=== PATIENT | female | born 1960 | race Caucasian/White ===

== ENCOUNTER → 2016-10-07 | Outpatient (CLI) | payer BC ==
[~2016-10-07] MED LIST: AMT25 PO; ASPI81TA28 PO; B-COTAB18; CARI350T28 PO; CHOL200010 PO; DILT240C57 PO; GLUC10007 PO; IBUP-1050 PO; MAGN400T6 PO; MELA1TAB22 PO; MULT-513 PO; OMEG10007 PO; ONDA4TAB46 PO; TRAM-10 PO; ZNTT/150 PO; ZOLE5INJ INH
--- NOTE | 2016-10-07 15:33 | MAMMOGRAPHY REPORT ---
BILATERAL DIGITAL SCREENING MAMMOGRAM TOMOSYNTHESIS WITH CAD: 10/07/2016 TECHNIQUE: Breast tomosynthesis in addition to standard 2D mammography was performed. Current study was also evaluated with a Computer Aided Detection (CAD) system. COMPARISON: Comparison is made to exams dated: 06/14/2013 mammogram and 10/04/2014 mammogram - [facility]. BREAST COMPOSITION: There are scattered areas of fibroglandular density in both breasts. FINDINGS: No suspicious masses, calcifications, or areas of architectural distortion are noted in e ither breast. There has been no significant interval change compared to prior exams. IMPRESSION: ACR BI-RADS CATEGORY 1: NEGATIVE There is no mammographic evidence of malignancy. A 1 year screening mammogram is recommended. The p atient will receive written notification of the results. Approximately 10% of breast cancers are not detected with mammography. A negative mammographic repor t should not delay biopsy if a clinically suggestive mass is present. Lavern Stevens M.D. ah/:10/07/2016 13:39:15 Drag Seiner: Cheryl MCMAHON(R)(M), [facility] letter sent: Normal 1/2 BI-RADS Code: ACR BI-RADS Category 1: Negative
== END | disposition home or self-care (01) ==
LOC: C.MAMM 11:05
PROVIDERS: ATTEND Obstetrics & Gynecology
DX: Z12.31 Encounter for screening mammogram for malignant neoplasm of breast (principal)

== ENCOUNTER → 2016-10-09 | Day surgery (SDC) | payer BC ==
[2016-10-08 08:55] VITALS: BMI 20.4
[~2016-10-09] VITALS: Ht 170.2 cm; Wt 59.0 kg
[~2016-10-09] MED LIST changes: +ZOLEDRONIC ACID INJ 5 MG in EMPTY BAG 0 ML IV SCH
[2016-10-09 10:44] VITALS: BP 138/80; PULSE 60; TEMP 36.5; O2SAT 100; Ht 170.2 cm; Wt 59.0 kg
[2016-10-09 11:06] VITALS: BP 125/75; PULSE 61; TEMP 36.7; O2SAT 98
== END | disposition home or self-care (01) ==
LOC: C.MTU 10:27
PROVIDERS: ATTEND Internal Medicine
DX: M81.0 Age-related osteoporosis without current pathological fracture (principal); N95.0 Postmenopausal bleeding

== ENCOUNTER 2016-11-05 21:31 | Emergency (ER) | payer BC ==
[~2016-11-05] VITALS: Ht 170.2 cm; Wt 60.0 kg
[~2016-11-05 21:31] MED LIST changes: -ASPI81TA28 PO; -CARI350T28 PO; -MELA1TAB22 PO; -ONDA4TAB46 PO; -ZNTT/150 PO; -ZOLE5INJ INH; -ZOLEDRONIC ACID INJ 5 MG in EMPTY BAG 0 ML IV SCH
[2016-11-05 21:56] VITALS: TEMP 36.8; Ht 170.2 cm; Wt 60.0 kg
[2016-11-05] MEDS ORDERED: ONDANSETRON INJ 2 MG/ML 2 ML VIAL IV STA (22:24)
[2016-11-05 22:33] LABS: BASO % 0.1 %; BASO ABS # 0.01 K/uL (0-0.2); COMPLETE YES; EOS % 0.7 %; HEMATOCRIT 42.9 % (37-47); IG% 0.2 %; LYMPH % 10.8 %; LYMPH ABS # 1.05 K/uL (1.2-3.4); MEAN CELL VOLUME 95.1 fL (80-100); MEAN CORPUSCULAR HEMOGLOBIN 31.9 pg (25-34); MEAN CORPUSCULAR HGB CONC 33.6 g/dl (32-36); MEAN PLATELET VOLUME 10.7 fL (7.4-10.4); MONO % 6.6 %; NEUT % 81.6 %; PLATELET COUNT 255 K/uL (130-400); RED BLOOD COUNT 4.51 M/uL (4.2-5.4); WHITE BLOOD COUNT 9.68 K/uL (4.8-10.8)
[2016-11-05 22:40] LABS: BUN/CREATININE RATIO 24.1 (10-20); CALCIUM 9.3 mg/dl (8.5-10.1); CREATININE 0.86 mg/dl (0.60-1.20); POTASSIUM 3.8 mmol/L (3.5-5.1)
[2016-11-05] MEDS ORDERED: CARI350T28 PO (22:45)
[2016-11-05] MEDS ORDERED: SODIUM CHLORIDE 0.9% 1000ML 1,000 ML IV ONE ×2 (22:45)
[2016-11-05] MEDS ORDERED: ASPI81TA28 PO (22:58)
[2016-11-05] MEDS ORDERED: MELA1TAB22 PO (22:58)
[2016-11-05] MEDS ORDERED: ZNTT/150 PO (22:58)
[2016-11-05] MEDS ORDERED: ZOLE5INJ INH (22:58)
[2016-11-05] MEDS ORDERED: ONDA4TAB46 PO (22:58)
[2016-11-05 23:18] LABS: URINE APPEARANCE CLEAR (CLEAR); URINE BILIRUBIN NEG (NEG); URINE COLOR DK YELLOW; URINE NITRITE NEG (NEG); URINE PH >= 9.0 (4.5-7.5); URINE SPECIFIC GRAVITY 1.022 (1.000-1.030); UROBILINOGEN NEG (NEG); ZZUR CULT IF INDIC CLEAN CATCH NO
[2016-11-05 23:33] LABS: MANUAL MICROSCOPIC REQUIRED? NO; REVIEW REQ? NO; SULFASALICYLIC ACID NEG (NEG)
[2016-11-06] VITALS: BP 127/71; PULSE 85; O2SAT 100
--- NOTE | 2016-11-06 00:40 | EMERGENCY ROOM VISIT NOTE ---
History First contact with patient: 22:24 Chief Complaint: NAUSEA Stated Complaint: NAUSEA Nursing Triage Summary: Patient describes a sudden onset of nausea while at game at [facility]. Patient describes this as a sudden onset. Patient is currently taking ABX for UTI. Patient did have ETOH at dinner. History of Present Illness The patient is a 56 year old female who presents to the Emergency Room with complaints of acute onset of nausea and vomiting at the [facility] this evening. The patient states that she had scallops on a potato cake for lunch today, but no other abnormal food. She had yogurt around 4 PM. The patient and her got ready, went to the [employer] game, and after leaving the game the patient began feeling ill. She managed to make it outside of the [facility], where she vomited. She was initially seen by medics at the facility, who recommended ER evaluation. On arrival the patient has persistent nausea. She does report a history of gastroparesis. She has not had fever or chills. She is without significant abdominal pain. She rates her discomfort a 6/10. Review of Systems More than 10 systems were reviewed and otherwise negative with the exception of history of present illness. Past Medical/Surgical History History of gastroparesis. Status post cholecystectomy. Family History No pertinent family history Social History Smoking Status: Never Smoker Housing Status: lives with family Current/Historical Medications Scheduled Aspirin (Aspirin Ec), 81 MG PO DAILY B-Complex Vitamins (Vitamin B Complex), DAILY Cholecalciferol (Vitamin D), 2,000 UNITS PO DAILY Fish Oil ([place]-3), 1 CAP PO DAILY Magnesium Oxide (Mag-Ox), 400 MG PO DAILY Melatonin-Pyridoxine (Melatonin), 1 TAB PO HS Multivitamins/Minerals (Mvi With Minerals), 1 TAB PO DAILY Zoledronic Acid (Reclast), 1 DOSE INH UD Scheduled PRN Amitriptyline HCl (Amitriptyline HCl), 25 MG PO DAILYBB PRN for Carisoprodol (Soma), 0.5 TABS PO HS PRN for Muscle Spasms Ondansetron Hcl (Zofran), 4 MG PO Q8 PRN for Nausea Ranitidine (Zantac), 150 MG PO DAILY PRN for Dyspepsia Tramadol (Ultram), 1 TAB PO TID PRN for Pain Allergies Coded Allergies: Sulfa Antibiotics (Verified Allergy, Intermediate, HIVES, 10/09/16) reports generalized swelling Physical Exam Vital Signs Date Time Temp Pulse Resp B/P Pulse Ox O2 Delivery O2 Flow Rate FiO2 11/06/16 00:00 85 18 127/71 100 11/05/16 21:56 36.8 78 16 96/67 98 Room Air Pain Rating (0-10): 0 Physical Exam VITALS: Vitals are noted on the nurse's note and reviewed by myself. Vital signs stable. GENERAL: Well-developed, well-nourished, white female, who is in no acute distress and resting comfortably. Patient is cooperative with the examination. HEAD: Normocephalic atraumatic. MOUTH: Mucous membranes moist. Tonsils are not enlarged. Pharynx without erythema, blood, or exudate. Uvula midline. Airway patent. NECK: Supple without nuchal rigidity. No lymphadenopathy. No thyromegaly. Cervical spine is nontender. HEART: Regular rate and rhythm without murmurs gallops or rubs. LUNGS: Clear to auscultation bilaterally without wheezes, rales or rhonchi. No retractions or accessory muscle use. ABDOMEN: Positive normal bowel sounds x 4. Soft, nontender, without masses or organomegaly. No guarding or rebound tenderness. No CVA tenderness. MUSCULOSKELETAL: No muscle atrophy, erythema, or edema noted. Full range of motion without joint tenderness in extremities. No tenting of skin. Medical Decision & Procedures Laboratory Results 11/05/16 22:05 Red Blood Count 4.51, Mean Corpuscular Volume 95.1, Mean Corpuscular Hemoglobin 31.9, Mean Corpuscular Hemoglobin Concent 33.6, Mean Platelet Volume 10.7, Neutrophils (%) (Auto) 81.6, Lymphocytes (%) (Auto) 10.8, Monocytes (%) (Auto) 6.6, Eosinophils (%) (Auto) 0.7, Basophils (%) (Auto) 0.1, Neutrophils # (Auto) 7.89, Lymphocytes # (Auto) 1.05, Monocytes # (Auto) 0.64, Eosinophils # (Auto) 0.07, Basophils # (Auto) 0.01 11/05/16 22:05 Test 11/05/16 22:05 11/05/16 23:00 White Blood Count 9.68 K/uL (4.8-10.8) Red Blood Count 4.51 M/uL (4.2-5.4) Hemoglobin 14.4 g/dL (12.0-16.0) Hematocrit 42.9 % (37-47) Mean Corpuscular Volume 95.1 fL (80-100) Mean Corpuscular Hemoglobin 31.9 pg (25-34) Mean Corpuscular Hemoglobin Concent 33.6 g/dl (32-36) Platelet Count 255 K/uL (130-400) Mean Platelet Volume 10.7 fL (7.4-10.4) Neutrophils (%) (Auto) 81.6 % Lymphocytes (%) (Auto) 10.8 % Monocytes (%) (Auto) 6.6 % Eosinophils (%) (Auto) 0.7 % Basophils (%) (Auto) 0.1 % Neutrophils # (Auto) 7.89 K/uL (1.4-6.5) Lymphocytes # (Auto) 1.05 K/uL (1.2-3.4) Monocytes # (Auto) 0.64 K/uL (0.11-0.59) Eosinophils # (Auto) 0.07 K/uL (0-0.5) Basophils # (Auto) 0.01 K/uL (0-0.2) RDW Standard Deviation 43.8 fL (36.4-46.3) RDW Coefficient of Variation 12.7 % (11.5-14.5) Immature Granulocyte % (Auto) 0.2 % Immature Granulocyte # (Auto) 0.02 K/uL (0.00-0.02) Anion Gap 6.0 mmol/L (3-11) Est Creatinine Clear Calc Drug Dose 67.5 ml/min Estimated GFR () 86.3 Estimated GFR (Non- 74.5 BUN/Creatinine Ratio 24.1 (10-20) Calcium Level 9.3 mg/dl (8.5-10.1) Total Bilirubin 0.4 mg/dl (0.2-1) Aspartate Amino Transf (AST/SGOT) 27 U/L (15-37) Alanine Aminotransferase (ALT/SGPT) 23 U/L (12-78) Alkaline Phosphatase 74 U/L (45-117) Total Protein 7.9 gm/dl (6.4-8.2) Albumin 3.9 gm/dl (3.4-5.0) Globulin 4.0 gm/dl (2.5-4.0) Albumin/Globulin Ratio 1.0 (0.9-2) Lipase 225 U/L (73-393) Urine Color DK YELLOW Urine Appearance CLEAR (CLEAR) Urine pH >= 9.0 (4.5-7.5) Urine Specific [place] 1.022 (1.000-1.030) Urine Protein NEG (NEG) Urine Glucose (UA) NEG (NEG) Urine Ketones NEG (NEG) Urine Occult Blood NEG (NEG) Urine Nitrite NEG (NEG) Urine Bilirubin NEG (NEG) Urine Urobilinogen NEG (NEG) Urine Leukocyte Esterase TRACE (NEG) Urine WBC (Auto) 1-5 /hpf (0-5) Urine RBC (Auto) 0-4 /hpf (0-4) Urine Hyaline Casts (Auto) 1-5 /lpf (0-5) Urine Epithelial Cells (Auto) 10-20 /lpf (0-5) Urine Bacteria (Auto) NEG (NEG) Medications Administered Medications (Trade) Dose Ordered Sig/Crissy Route Start Time Stop Time Status Last Admin Dose Admin Ondansetron HCl 4 mg 4 mg NOW STAT IV 11/05/16 22:24 11/05/16 22:25 DC 11/05/16 22:35 4 MG Sodium Chloride 1,000 ml @ 999 mls/hr Q1H1M ONCE IV 11/05/16 22:45 11/05/16 23:45 DC 11/05/16 22:39 999 MLS/HR Sodium Chloride (Nss 1000ml) 1,000 ml @ 999 mls/hr Q1H1M ONCE IV 11/05/16 22:45 11/05/16 23:45 DC 11/05/16 23:00 999 MLS/HR ED Course Physical exam and history were performed. Nursing notes and EMR were reviewed. Patient appears to have nausea and vomiting times one episode this evening. Patient has a history of gastroparesis, but she typically does not have vomiting with this. IV access was established and labs were obtained. The patient was hydrated with 2 L normal saline. She was given IV Zofran for comfort. The patient blood work is as above and was reviewed. She does not have a significantly elevated white blood cell count, gross anemia, bandemia, or significant electrolyte imbalance. On reevaluation the patient had significant improvement of her nausea, and felt much better after IV hydration. I discussed options of care with the patient, who overall appears well for discharge home. She does have Zofran at home that she may use if needed. I suspect that her symptoms may be food borne or viral in etiology, and I did discuss this with her. She did not have any worsening abdominal discomfort, and certainly does not present like an acute surgical abdomen at this time. If she does have worsening evolving symptoms she was invited back to the ER. The patient should otherwise follow with her PCP and she was very pleased with plan of care. She was discharged home under the care of her . The chart was completed utilizing [employer] Speech Voice Recognition Software. Grammatical errors, random word insertions, pronoun errors, and incomplete sentences are an occasional consequence of this system due to software limitations, ambient noise, and hardware issues. Any formal questions or concerns about the content, text, or information contained within the body of this dictation should be directly addressed to the provider for clarification. . Medical Decision Differential diagnosis: Etiologies such as gastroenteritis, food borne illness, infections, appendicitis , diverticulitis, inflammatory bowel disease, obstruction, GI bleed, biliary pathology, as well as others were entertained. Impression Primary Impression: Nausea and vomiting Departure Information Dispostion Home / Self-Care Condition GOOD Forms HOME CARE DOCUMENTATION FORM, IMPORTANT VISIT INFORMATION Patient Instructions My [facility] Additional Instructions You were seen and evaluated today on an emergency basis only. This is not a substitute for, or an effort to provide, complete comprehensive medical care. It is not possible to recognize and treat all injuries or illnesses in a single emergency department visit. For this reason it is recommended that you followup with your primary care physician in the next week with any ongoing or persistent symptoms. Drink plenty of fluids and remain well hydrated. You may use your Zofran at home to help with her symptoms. You are welcome to return to the emergency department anytime with new, worsening, or concerning symptoms.
== END 2016-11-06 | disposition home or self-care (01) ==
LOC: C.EDB 21:32 → C.EDA 11-06
DX: R11.2 Nausea with vomiting, unspecified (principal); Z90.49 Acquired absence of other specified parts of digestive tract; Z79.82 Long term (current) use of aspirin

== ENCOUNTER → 2016-11-11 | Outpatient (CLI) | payer BC ==
[~2016-11-11] MED LIST changes: +ASPI81TA28 PO; +CARI350T28 PO; -DILT240C57 PO; -GLUC10007 PO; -IBUP-1050 PO; +MELA1TAB22 PO; +ONDA4TAB46 PO; +ZNTT/150 PO; +ZOLE5INJ INH
== END | disposition home or self-care (01) ==
LOC: C.LABSPEC 13:52
PROVIDERS: ATTEND Physician Assistant
DX: N94.9 Unspecified condition associated with female genital organs and menstrual cycle (principal)

== ENCOUNTER 2017-04-12 23:31 | Emergency (ER) | payer BC ==
[~2017-04-12] VITALS: Ht 167.6 cm; Wt 63.2 kg
[2017-04-12 23:39] VITALS: TEMP 36.5; Ht 167.6 cm; Wt 63.2 kg
[2017-04-13] MEDS ORDERED: NORCO 5/325MG HOME PACK PO ONE (00:45)
--- NOTE | 2017-04-13 00:45 | EMERGENCY ROOM VISIT NOTE ---
ED Visit Note First contact with patient: 00:15 CHIEF COMPLAINT: Nasal injury 2 hours ago HISTORY OF PRESENT ILLNESS: Patient is a 56-year-old white female who presents to the emergency department for evaluation nasal pain after an injury that occurred about 2 hours ago. She was not wearing her glasses and had turned the light off in her kitchen. When she turned, she accidentally ran into the wall, striking her nose. She states that she had bleeding immediately, has been states that it was primarily from the right nostril. They were able to get this stopped prior to leaving home. She has a small laceration on the nasal bridge. There was no loss of consciousness, vomiting, or change in behavior after the injury. The nose is swollen and there is constant moderate pain. The patient denies any change in vision and does not have a headache. REVIEW OF SYSTEMS: Review of systems as per HPI. All other systems reviewed were negative. At least 6 systems reviewed. PMH: Electronic medical records are reviewed and summarized as above/below. See Problem List. SOCIAL HISTORY: Patient lives at home with her . She is retired. PHYSICAL EXAM: Vital Signs: Reviewed Nurse's notes. CONSTITUTIONAL: Patient is a pleasant, well-appearing 56-year-old white female who is awake and alert and in no acute distress. EYES: PERRL, EOMs full, no discharge or injection. NOSE: The bridge of the nose is slightly ecchymotic and swollen and tender. She has a small, non-gaping roughly 2mm laceration over the nasal bridge. The nose is not displaced significantly to one side or the other. There is some dried blood in the nostrils but no active bleeding. There is no septal hematoma. EARS: Tympanic membranes intact, not inflamed, have normal contour. External canals clear. MOUTH: Mucous membranes moist, no lesions, tongue and gums appear normal. THROAT: No pharyngeal injection, exudates, or tonsillar hypertrophy. Airway is patent. NEUROLOGICAL: Sensory and motor functions grossly intact, normal gait, cooperative and appropriate. EMERGENCY DEPARTMENT COURSE: The patient was seen and evaluated as above. She has sustained a nasal injury, with a very small laceration. There is no significant deformity or displacement of the nose. The patient is agreeable to defer on radiographs. The wound was cleansed with saline, and Dermabond 2 layers was applied. She does not have any evidence for septal hematoma. Conservative care measures were discussed. She was encouraged to continue to ice the nose, can use [id number] medications for discomfort and was also given a [place] home pack to use if needed. She can follow-up with her primary care provider for referral to ENT if she would like the nose reevaluated once the swelling of the bruising resolved. Medication reconciliation: I attest that I have personally reviewed the patient' s current medication list. Blood pressure screening : Patient was found to have normal blood pressure on screening and does not require follow-up. Problem List Medical Problems: (1) Nausea and vomiting Status: Resolved (2) Stomach problems Status: Chronic Surgical Problems: (1) History of total hip arthroplasty Status: Resolved Current/Historical Medications Scheduled Aspirin (Aspirin Ec), 81 MG PO DAILY B-Complex Vitamins (Vitamin B Complex), DAILY Cholecalciferol (Vitamin D), 2,000 UNITS PO DAILY Fish Oil ([place]-3), 1 CAP PO DAILY Magnesium Oxide (Mag-Ox), 400 MG PO DAILY Melatonin-Pyridoxine (Melatonin), 1 TAB PO HS Multivitamins/Minerals (Mvi With Minerals), 1 TAB PO DAILY Zoledronic Acid (Reclast), 1 DOSE INH UD Scheduled PRN Amitriptyline HCl (Amitriptyline HCl), 25 MG PO DAILYBB PRN for Carisoprodol (Soma), 0.5 TABS PO HS PRN for Muscle Spasms Ondansetron Hcl (Zofran), 4 MG PO Q8 PRN for Nausea Ranitidine (Zantac), 150 MG PO DAILY PRN for Dyspepsia Tramadol (Ultram), 1 TAB PO TID PRN for Pain Allergies Coded Allergies: Sulfa Antibiotics (Verified Allergy, Intermediate, HIVES, 04/12/17) reports generalized swelling Vital Signs Date Time Temp Pulse Resp B/P (MAP) Pulse Ox O2 Delivery O2 Flow Rate FiO2 04/12/17 23:39 36.5 75 20 139/84 97 Room Air Departure Information Impression Primary Impression: Nasal injury Referrals Miguel Coulter M.D. (PCP) Patient Instructions My [facility] Additional Instructions Hydrocodone/Acetaminophen ([place]) 5/325 mg: Take 1-2 pills every four hours for breakthrough pain. Avoid alcohol, operating machinery or dangerous equipment, working on ladders or roofs, DRIVING, or situations where being under the influence may be dangerous. It is recommended to use an [id number]-bhj-wajzpxn stool softener such as Colace, 100mg twice daily while taking this medication to avoid constipation. Ibuprofen(Motrin, Advil) may be used for fever or pain. Use 600mg every six hours as needed. Take with food. Avoid using more than 2400mg in a 24 hour period. Do not use 2400mg per day for more than three consecutive days without physician direction. Prolonged inappropriate use can lead to stomach upset or ulcers. This medication can be taken if you need to drive, work, or perform activities which may be dangerous when taking narcotic pain medication. (AND/OR) Acetaminophen(Tylenol) may be used for fever or pain. Use 1000mg every six hours as needed. Avoid using more than 3000mg in a 24 hour period. This medication can be taken if you need to drive, work, or perform activities which may be dangerous when taking narcotic pain medication. Ice compresses for 10-15 minutes at a time four times daily for 2-3 days. Allow the Dermabond to come off on its own. Continue current medications. Follow-up with ENT provider for further care and management if you would like the nose reevaluated once swelling and bruising have resolved. Problem Qualifiers Primary Impression: Nasal injury Encounter type: initial encounter Qualified Codes: S09.92XA - Unspecified injury of nose, initial encounter
[2017-04-13 01:23] VITALS: BP 138/85; PULSE 65; O2SAT 97
== END 2017-04-13 01:24 | disposition home or self-care (01) ==
LOC: C.EDB 23:31
DX: S09.92XA Unspecified injury of nose, initial encounter (principal); W22.8XXA Striking against or struck by other objects, initial encounter; Z87.19 Personal history of other diseases of the digestive system; Z96.649 Presence of unspecified artificial hip joint; Z79.82 Long term (current) use of aspirin; Z79.899 Other long term (current) drug therapy; Z88.2 Allergy status to sulfonamides

== ENCOUNTER → 2017-08-12 | Outpatient (CLI) | payer BC ==
--- NOTE | 2017-08-12 11:11 | DIAGNOSTIC IMAGING REPORT ---
LUMBAR SPINE W/O CONTRAST HISTORY: Pain. Radiculopathy. CHRONIC LOW BACK PAIN, LUMBAR RADICULOPATHY TECHNIQUE: Multiplanar multisequence MRI of the lumbar spine was performed without the use of contrast. COMPARISON: 07/03/2015 FINDINGS: For the purpose of the report the L5-S1 disc space will be located on axial image 23 of 25. Mild degenerative disc desiccation throughout the entire lumbar region. This is similar based on the sagittal images. L1-L2: No significant central canal or neural foraminal narrowing. L2-L3: No significant central canal or neural foraminal narrowing. L3-L4: Moderate narrowing left neural foramina primarily secondary to either a synovial cyst versus dural ectasia. This is minimally increased in prominence of the prior study. Minimal associated broad-based disc bulge. L4-L5: Mild dural ectasia of the nerve roots bilaterally. Mild narrowing of the neuroforamina bilaterally similar compared to the prior study. Mild broad-based disc bulge similar compared to the prior study. L5-S1: No significant central canal or neural foraminal narrowing. IMPRESSION: 1. Mild broad-based disc bulges at L3-L4 and L4-L5 similar as compared to the prior study. 2. Mild dural ectasia and or synovial cyst narrowing the left and to a lesser extent right neural foramina at L3-L4 and bilaterally at L4-L5. 3. Narrowing of the neural foramina is similar to slightly increased from the prior exam. The above report was generated using voice recognition software. It may contain grammatical, syntax or spelling errors. Electronically signed by: Christopher Olson M.D. 08/12/2017 11:10 AM Dictated Date/Time: 08/12/2017 11:00 AM
== END | disposition home or self-care (01) ==
LOC: C.MRI 09:32
PROVIDERS: ATTEND Internal Medicine
DX: M54.16 Radiculopathy, lumbar region (principal)

== ENCOUNTER → 2017-08-19 | Outpatient (CLI) | payer OTHER ==
[~2017-08-19] MED LIST changes: +CYAN100T PO; +DICL1GEL12; +DIGE1CAP7 PO; +ESTVR2; +RANI150T85 PO; +TURM1CAP4 PO; -ZNTT/150 PO
--- NOTE | 2017-08-19 14:54 | DIAGNOSTIC IMAGING REPORT ---
THORACIC SPINE WITHOUT CLINICAL HISTORY: 57 years-old Female presenting with M54.9 Back painR20.0 [id number]. TECHNIQUE: Multisequence, multiplanar MR imaging of the thoracic spine was performed without the use of intravenous contrast. IV contrast: None. COMPARISON: 07/29/2015. FINDINGS: Localizer images: Unremarkable. Normal thoracic kyphosis. Vertebral bodies maintain normal height, alignment, and bone marrow signal intensity. Intervertebral disc spaces preserved. The mild disc osteophyte complex at T3-4 is again noted with left paracentral disc protrusion resulting in contouring of the left anterior aspect of the spinal cord. CSF space at this level is largely preserved. No significant neural foraminal narrowing. No significant other degenerative change is noted. These findings are similar to the prior exam. Partially visualized anterior cervical fusion hardware. IMPRESSION: Stable appearance of the focal degenerative change at T3-4 with left paracentral disc protrusion and contouring of the left anterior aspect of the spinal cord. No new degenerative change. Electronically signed by: Miguel Strauss M.D. 08/19/2017 2:53 PM Dictated Date/Time: 08/19/2017 2:49 PM
== END | disposition home or self-care (01) ==
LOC: C.MRIBC 13:58
PROVIDERS: ATTEND Family Medicine Adult Medicine
DX: M54.9 Dorsalgia, unspecified (principal); R20.0 Anesthesia of skin; M51.24 Other intervertebral disc displacement, thoracic region

== ENCOUNTER → 2017-09-28 | Outpatient (CLI) | payer OTHER ==
[~2017-09-28] MED LIST changes: -CARI350T28 PO; +GADAVIST IV PRN
--- NOTE | 2017-09-28 08:54 | DIAGNOSTIC IMAGING REPORT ---
CERVICAL SPINE MRI WITH AND WITHOUT CONTRAST HISTORY: M54.12 Cervical radiculopathy [id number] TECHNIQUE: Multiplanar multisequence MRI of the cervical spine was performed both before and after the use of intravenous contrast. COMPARISON STUDY: Cervical spine MRI 07/03/2015. FINDINGS: Alignment and curvature are intact. No fracture or subluxation. Prevertebral soft tissues and the C1-C2 interval are maintained. The cervical spinal cord is normal in course, caliber, and signal intensity. The visualized posterior fossa is unremarkable. There is anterior cervical discectomy and fusion at C6-C7. There is mild disc space narrowing at C4-C5. No abnormal enhancement. C2-C3: No significant central canal or neural foraminal narrowing. C3-C4: Small focal central disc protrusion without significant central canal or neural foraminal narrowing. C4-C5: Small broad-based posterior disc osteophyte complex without significant central canal narrowing. There is mild right-sided neural foraminal narrowing. This remains unchanged. C5-C6: Small broad-based posterior disc osteophyte complex with a focal left paracentral annular tear. No significant central canal narrowing. There is mild right-sided neural foraminal narrowing, unchanged. C6-C7: No significant central canal or neural foraminal narrowing. C7-T1: No significant central canal or neural foraminal narrowing. IMPRESSION: 1. Prior anterior cervical discectomy and fusion at C6-C7. 2. Mild degenerative changes at C3-C4, C4-C5, and C5-C6 as described above. This is not significantly changed. Electronically signed by: Justino Dudley M.D. 09/28/2017 8:53 AM Dictated Date/Time: 09/28/2017 8:46 AM
== END | disposition home or self-care (01) ==
LOC: C.MRI 06:27
PROVIDERS: ATTEND Psychiatry & Neurology Neurology
DX: M54.12 Radiculopathy, cervical region (principal)

== ENCOUNTER → 2017-09-30 | Day surgery (SDC) | payer OTHER ==
[~2017-09-30] VITALS: Ht 170.2 cm; Wt 62.6 kg
[~2017-09-30] MED LIST changes: +ACETAMINOPHEN 500 MG TAB PO PRN; -GADAVIST IV PRN; +ZOLEDRONIC ACID INJ 5 MG in EMPTY BAG 0 ML IV SCH
[2017-09-30 09:17] VITALS: BP 118/79; PULSE 68; TEMP 36.3; O2SAT 100; Ht 170.2 cm; Wt 62.6 kg
== END | disposition home or self-care (01) ==
LOC: C.MTU 09:04
PROVIDERS: ATTEND Internal Medicine
DX: M81.0 Age-related osteoporosis without current pathological fracture (principal)

== ENCOUNTER 2019-05-12 18:03 | Observation (INO) ==
[2019-05-12] MEDS ORDERED: FAMOTIDINE 20 MG TAB PO ONE (18:36)
[2019-05-12] MEDS ORDERED: predniSONE 20 MG TAB PO STA (18:36)
[2019-05-12 18:57] LABS: Basophils # (auto) 0.02 K/uL (0-0.2); Basophils % (auto) 0.3 %; Eosinophils # (auto) 0.07 K/uL (0-0.5); Hematocrit (blood only) 40.5 % (37-47); Hemoglobin 13.8 g/dL (12.0-16.0); Immature Granulocytes # (auto) 0.02 K/uL (0.00-0.02); Immature Granulocytes % (auto) 0.3 %; Lymphocytes # (auto) 1.94 K/uL (1.2-3.4); Lymphocytes % (auto) 27.7 %; Mean Corpuscular Hemoglobin 32.5 pg (25-34); Mean Corpuscular Hgb Conc 34.1 g/dL (32-36); Mean Corpuscular Volume 95.5 fL (80-100); Mean Platelet Volume 10.6 fL (7.4-10.4); Monocytes # (auto) 0.36 K/uL (0.11-0.59); Monocytes % (auto) 5.1 %; Neutrophils % (auto) 65.6 %; Platelet Count 245 K/uL (130-400); RDW Coefficient of Variation 12.2 % (11.5-14.5); RDW Standard Deviation 42.2 fL (36.4-46.3); Red Blood Count 4.24 M/uL (4.2-5.4); White Blood Count 7.01 K/uL (4.8-10.8)
--- NOTE | 2019-05-12 18:59 | XRay Report ---
SINGLE VIEW CHEST CLINICAL HISTORY: Atypical chest pain. FINDINGS: An AP, portable, upright chest radiograph is obtained. No prior studies are available for c omparison at the time of dictation. The cardiomediastinal silhouette is unremarkable. The lungs and pleural spaces are clear. No pneumothorax is seen. The bony thorax is grossly intact. Fusion hardwar e is noted in the lower cervical spine. Cholecystectomy clips are seen in the right upper quadrant. IMPRESSION: No active disease in the chest. Electronically signed by: Miller Islas M.D. 05/12/2019 6:58 PM
[2019-05-12 19:13] LABS: Alanine Aminotransferase 28 U/L (12-78); Albumin Level 3.7 gm/dl (3.4-5.0); Aspartate Aminotransferase 27 U/L (15-37); BUN Creatinine Ratio 11.7 (10-20); Blood Urea Nitrogen 12 mg/dl (7-18); Carbon Dioxide 26 mmol/L (21-32); Chloride 105 mmol/L (98-107); Creatinine Clr Calc Pharmacy 55.9 ml/min; Est GFR (African American) 67.6; Est GFR (Non-African American) 58.4; Glucose 173 mg/dl (70-99); Lipase 138 U/L (73-393); Potassium 3.5 mmol/L (3.5-5.1); Sodium 140 mmol/L (136-145)
[2019-05-12 19:18] LABS: Alkaline Phosphatase 74 U/L (45-117); Bilirubin,Total 0.3 mg/dl (0.2-1); Globulin 3.6 gm/dl (2.5-4.0); Total Protein 7.3 gm/dl (6.4-8.2); Troponin I < 0.015 ng/ml (0-0.045)
[2019-05-12] MEDS ORDERED: cefOXitin 2,000 MG/60 ML BAG IV STA (21:10)
[2019-05-12] MEDS ORDERED: cefTRIAXone SODIUM 1,000 MG/50 ML BAG IV STA (21:33)
[2019-05-12] MEDS ORDERED: ASPIRIN CHEW 324 MG PO STA (22:22)
[2019-05-12] MEDS ORDERED: NITROGLYCERIN 2% OINTMENT 30GM TUBE EXT STA (22:22)
--- NOTE | 2019-05-12 23:30 | Emergency Department Note ---
Entered by Ronna Carrington acting as a scribe for ED Provider Note CHIEF COMPLAINT: Chest pain HISTORY OF PRESENT ILLNESS: The patient is a 58 year old female who presents to the Emergency Room with complaints of chest pain that started 2.5 hours ago. The patient states that her pain is mostly in the right side of her chest but occasionally radiates to the center of her chest and back. The patient states that her chest pain started shortly after eating some chicken. The patient states that she has a loss of appetite and feels nauseas. The patient notes that she is currently on antibiotics for a UTI, but notes that she has started to break out in hives on her arms and legs. Pt denies LOC, headache, fevers, chills, diaphoresis, visual changes, neck pain, breathing difficulties, nausea, vomiting, abdominal pain, back pain, melena, hematochezia, urinary symptoms, numbness, weakness, lymphadenopathy, or other complaints. REVIEW OF SYSTEMS: See HPI for pertinent positives and negatives. A total of ten systems were reviewed and were otherwise negative. PMHx/PSHx: Osteoporosis, meningitis, acid reflux, hysterectomy. SOCIAL HISTORY: Patient lives at home. PHYSICAL EXAM: GENERAL: Awake, alert, uncomfortable-appearing, in no distress HENT: Normocephalic, atraumatic. Oropharynx unremarkable. EYES: PERRL. Normal conjunctiva. Sclera non-icteric. NECK: Inspection normal. Non-tender. Supple. No nuchal rigidity. FROM. No masses. RESPIRATORY: Clear to auscultation. No wheezes. No rales. Normal respiratory effort. CARDIAC: Normal rate. Normal rhythm. No murmurs. No rubs. Extremities warm and well perfused. Pulses equal. No JVD. GI: Soft, non-distended. No tenderness to palpation. No rebound or guarding. No masses. RECTAL: Deferred. MUSCULOSKELETAL: Atraumatic. Chest examination reveals no tenderness. The back is symmetrical on inspection without obvious abnormality. There is no CVA tenderness to palpation. No joint edema. LOWER EXTREMITIES: Calves are equal size bilaterally and non-tender. No edema. No discoloration. NEURO: Normal sensorium. No sensory or motor deficits noted. SKIN: Hives on arms and legs. No jaundice noted. EMERGENCY DEPARTMENT COURSE: 184: Past medical records reviewed. The patient was evaluated in room B3, and a complete history and physical examination were performed. 2056: I reevaluated the patient and she feels much better. The hives and redness are gone. We still need a repeat troponin. 2225: I discussed the patient's case with Dr. Wing- [facility], Hospitalist. She will evaluate the patient for further management. MEDICAL DECISION MAKING: Prior records/ancillary studies reviewed. Triage Nursing notes reviewed and agree them. Additional history obtained from the family. The patient's history was concerning for chest pain. Differential diagnosis: Etiologies such as cardiac ischemia, aortic dissection, pulmonary embolism, pne umonia, pneumothorax, musculoskeletal, infections, pericarditis, myocarditis, esophageal rupture, gastrointestinal, allergic reaction, as well as others were entertained. Physical examination: As above. Scattered hives and rash noted. ER treatment provided: Oral prednisone Oral Pepcid IV Rocephin On reassessment the patient felt better. Oral aspirin Nitropaste Diagnostic interpretation by me: The electrocardiogram was negative for pathologic change on the first. Repeat ECG revealed T wave inversions anteriorly. The labs revealed an unremarkable CBC and chemistry panel except for hyper glycemia. Troponin negative x1. Repeat troponin negative. Chemistry panel and LFTs negative A d-dimer was performed and it was negative. Based on Wells criteria and a negative dimer no further imaging for PE was performed. Imaging studies: Chest x-ray performed and was negative. Clinically patient is doing well. Her rash resolved after the above treatment. Unfortunately she was also complaining of chest pain and did have some acute ECG changes. Consultation: A consultation was placed with the hospitalist. The case was discussed and diagnostics were reviewed. The patient was evaluated in the ER for further treatment. IMPRESSION: Chest pain Acute electric cardiogram changes Acute UTI Allergic reaction caused by drug PLAN: Evaluated by Hospitalist The scribe's documentation has been prepared under my direction and personally reviewed by me in its entirety. I confirm that the note above accurately reflects all work, treatment, procedures, and medical decision making performed by me. Impression & Plan Chest pain, Acute UTI (urinary tract infection), Acute electrocardiogram changes, Allergic reaction caused by a drug Past Med/Surg History Medical History Acid reflux (Acute) Gastroparesis (Acute) History of hysterectomy (Acute) History of meningitis (Acute) Osteoporosis (Acute) Surgical History History of cholecystectomy (Acute) History of fusion of cervical spine (Acute) History of hip replacement (Acute) Social History Feels Safe at Home: Yes Smoking Status: Never smoker Results & Data Vital Signs Vital Signs - 24 hr 05/12/19 18:06 05/12/19 18:27 05/12/19 18:40 Temperature 36.9 C Temperature Source Oral Sepsis Recent Fever Within 48 Hours No Sepsis New/Unexplained Change in Mental Status No Sepsis Action Taken by Nursing No Action Required Pulse Rate 120 H 87 Pulse Rate [Left Apical] Pulse Rate from SpO2 Sensor 88 Pulse Rhythm [Left Apical] Pulse Strength [Left Apical] Respiratory Rate 18 20 Respiratory Effort / Characteristics Respiratory Depth Respiratory Pattern Blood Pressure 118/67 Blood Pressure [Left Arm] Blood Pressure Mean 84 Blood Pressure Mean [Left Arm] Blood Pressure Position [Left Arm] Pulse Oximetry 95 96 Oxygen Delivery Method Room Air 05/12/19 19:00 05/12/19 19:09 05/12/19 19:30 Temperature Temperature Source Sepsis Recent Fever Within 48 Hours Sepsis New/Unexplained Change in Mental Status Sepsis Action Taken by Nursing Pulse Rate 81 78 72 Pulse Rate [Left Apical] Pulse Rate from SpO2 Sensor 81 78 72 Pulse Rhythm [Left Apical] Pulse Strength [Left Apical] Respiratory Rate 19 21 18 Respiratory Effort / Characteristics Respiratory Depth Respiratory Pattern Blood Pressure 174/89 H 126/87 Blood Pressure [Left Arm] Blood Pressure Mean 117 100 Blood Pressure Mean [Left Arm] Blood Pressure Position [Left Arm] Pulse Oximetry 95 96 95 Oxygen Delivery Method 05/12/19 20:00 05/12/19 22:00 Temperature Temperature Source Sepsis Recent Fever Within 48 Hours Sepsis New/Unexplained Change in Mental Status Sepsis Action Taken by Nursing Pulse Rate 71 Pulse Rate [Left Apical] 85 Pulse Rate from SpO2 Sensor 73 Pulse Rhythm [Left Apical] Regular Pulse Strength [Left Apical] Normal Respiratory Rate 21 17 Respiratory Effort / Characteristics Non-Labored Spontaneous Respiratory Depth Normal Respiratory Pattern Regular Blood Pressure 124/87 Blood Pressure [Left Arm] 158/108 H Blood Pressure Mean 99 Blood Pressure Mean [Left Arm] 124 Blood Pressure Position [Left Arm] Sitting Pulse Oximetry 96 97 Oxygen Delivery Method Room Air Home Medications Current Medication List: was personally reviewed by me Laboratory Data Attestation: I reviewed the patient's lab results. Result diagrams: 05/12/19 18:35 05/12/19 18:35 Lab Results 05/12/19 05/12/19 05/12/19 Range/Units 18:35 18:35 18:54 WBC 7.01 (4.8-10.8) K/uL RBC 4.24 (4.2-5.4) M/uL Hgb 13.8 (12.0-16.0) g/dL Hct 40.5 (37-47) % MCV 95.5 (80-100) fL MCH 32.5 (25-34) pg MCHC 34.1 (32-36) g/dL RDW Std Deviation 42.2 (36.4-46.3) fL RDW Coeff of Josue 12.2 (11.5-14.5) % Plt Count 245 (130-400) K/uL MPV 10.6 H (7.4-10.4) fL Immature Gran % (Auto) 0.3 % Neut % (Auto) 65.6 % Lymph % (Auto) 27.7 % [place] % (Auto) 5.1 % Eos % (Auto) 1.0 % Baso % (Auto) 0.3 % Immature Gran # (Auto) 0.02 (0.00-0.02) K/uL Neut # (Auto) 4.60 (1.4-6.5) K/uL Lymph # (Auto) 1.94 (1.2-3.4) K/uL [place] # (Auto) 0.36 (0.11-0.59) K/uL Eos # (Auto) 0.07 (0-0.5) K/uL Baso # (Auto) 0.02 (0-0.2) K/uL POC D-Dimer 213 (0-450) ng/mlFEU Sodium 140 (136-145) mmol/L Potassium 3.5 (3.5-5.1) mmol/L Chloride 105 (98-107) mmol/L Carbon Dioxide 26 (21-32) mmol/L Anion Gap 9.0 (3-11) BUN 12 (7-18) mg/dl Creatinine 1.04 (0.6-1.2) mg/dl Est Cr Clr Drug Dosing 55.9 ml/min Est GFR ( Amer) 67.6 Est GFR (Non-Af Amer) 58.4 BUN/Creatinine Ratio 11.7 (10-20) Glucose 173 H (70-99) mg/dl Calcium 9.0 (8.5-10.1) mg/dl Total Bilirubin 0.3 (0.2-1) mg/dl AST 27 (15-37) U/L ALT 28 (12-78) U/L Alkaline Phosphatase 74 (45-117) U/L Troponin I < 0.015 (0-0.045) ng/ml Total Protein 7.3 (6.4-8.2) gm/dl Albumin 3.7 (3.4-5.0) gm/dl Globulin 3.6 (2.5-4.0) gm/dl Albumin/Globulin Ratio 1.0 (0.9-2) Lipase 138 (73-393) U/L 05/12/19 Range/Units 21:30 WBC (4.8-10.8) K/uL RBC (4.2-5.4) M/uL Hgb (12.0-16.0) g/dL Hct (37-47) % MCV (80-100) fL MCH (25-34) pg MCHC (32-36) g/dL RDW Std Deviation (36.4-46.3) fL RDW Coeff of Josue (11.5-14.5) % Plt Count (130-400) K/uL MPV (7.4-10.4) fL Immature Gran % (Auto) % Neut % (Auto) % Lymph % (Auto) % [place] % (Auto) % Eos % (Auto) % Baso % (Auto) % Immature Gran # (Auto) (0.00-0.02) K/uL Neut # (Auto) (1.4-6.5) K/uL Lymph # (Auto) (1.2-3.4) K/uL [place] # (Auto) (0.11-0.59) K/uL Eos # (Auto) (0-0.5) K/uL Baso # (Auto) (0-0.2) K/uL POC D-Dimer (0-450) ng/mlFEU Sodium (136-145) mmol/L Potassium (3.5-5.1) mmol/L Chloride (98-107) mmol/L Carbon Dioxide (21-32) mmol/L Anion Gap (3-11) BUN (7-18) mg/dl Creatinine (0.6-1.2) mg/dl Est Cr Clr Drug Dosing ml/min Est GFR ( Amer) Est GFR (Non-Af Amer) BUN/Creatinine Ratio (10-20) Glucose (70-99) mg/dl Calcium (8.5-10.1) mg/dl Total Bilirubin (0.2-1) mg/dl AST (15-37) U/L ALT (12-78) U/L Alkaline Phosphatase (45-117) U/L Troponin I < 0.015 (0-0.045) ng/ml Total Protein (6.4-8.2) gm/dl Albumin (3.4-5.0) gm/dl Globulin (2.5-4.0) gm/dl Albumin/Globulin Ratio (0.9-2) Lipase (73-393) U/L Administered Medications Discontinued Medications Aspirin (Aspirin) 324 mg PO NOW STA Stop: 05/12/19 22:23 Last Admin: 05/12/19 22:36 Dose: 324 mg Documented by: [id number] Famotidine (Pepcid) 20 mg PO NOW ONE Stop: 05/12/19 18:37 Last Admin: 05/12/19 19:11 Dose: 20 mg Documented by: [id number] Cefoxitin Sodium (Mefoxin) 2,000 mg in 60 mls @ 100 mls/hr IV NOW STA Stop: 05/12/19 21:45 Last Admin: 05/12/19 21:42 Dose: Not Given Documented by: [id number] Ceftriaxone Sodium (Rocephin) 1,000 mg in 50 mls @ 100 mls/hr IV NOW STA Stop: 05/12/19 22:02 Last Infusion: 05/12/19 22:15 Dose: 0 mls/hr Documented by: [id number] Admin: 05/12/19 21:41 Dose: 100 mls/hr Documented by: [id number] Nitroglycerin (Nitro-Bid 2%) 0.5 inch EXT NOW STA Stop: 05/12/19 22:23 Last Admin: 05/12/19 22:36 Dose: 0.5 inch Documented by: [id number] Prednisone (Prednisone) 60 mg PO NOW STA Stop: 05/12/19 18:37 Last Admin: 05/12/19 19:10 Dose: 60 mg Documented by: [id number] Imaging Data Radiologist's Impression: Radiology results as stated below per my review and the radiologist's interpretation: SINGLE VIEW CHEST CLINICAL HISTORY: Atypical chest pain. FINDINGS: An AP, portable, upright chest radiograph is obtained. No prior studies are available for comparison at the time of dictation. The cardiomediastinal silhouette is unremarkable. The lungs and pleural spaces are clear. No pneumothorax is seen. The bony thorax is grossly intact. Fusion hardware is noted in the lower cervical spine. Cholecystectomy clips are seen in the right upper quadrant. IMPRESSION: No active disease in the chest. Electronically signed by: Miller Islas M.D. 05/12/2019 6:58 PM ECG Data Attestation: I personally reviewed and interpreted this ECG as follows: Indication: chest pain Rate (beats per minute): 92 Rhythm: normal sinus Findings: + other (normal QRS), + nonspecific-ST abn and + ST depression; no ST elevation Additional Comments: REPEAT EKG: Rate: 74 Rhythm: Normal sinus rhythm Findings: Nonspecific ST-abnormality, anterior TWI, no ST depression, no PVC. Blood Pressure Blood Pressure Findings: Normal blood pressure Blood Pressure Disposition: did not require urgent referral Discharge Plan Visit Data Chief Complaint: Chest Pain Stated Complaint: chest pain ED Provider: Jose Arreola Discharge Problem: Chest pain, Acute UTI (urinary tract infection), Acute electrocardiogram changes, Allergic reaction caused by a drug Patient Disposition: Being Evaluated by Hospitalist Forms Stand Alone Forms: Call Back Authorization, My [facility] Prescriptions Prescriptions: No Action nitrofurantoin monohyd/m-cryst [Macrobid] 100 mg capsule 100 mg PO BID 5 Days Qty: 10 RF: 0 amitriptyline 10 mg tablet 20 mg PO QPM PRN (Reason: Insomnia) RF: 0 melatonin 10 mg Tablet 10 mg PO HS RF: 0 tramadol 50 mg Tablet 50 mg PO TID PRN (Reason: Pain) RF: 0 Referrals Referrals: Miguel Coulter MD [Primary Care Provider] - The scribe's documentation has been prepared under my direction and personally reviewed by me in its entirety. I confirm that the note above accurately reflect s all work, treatment, procedures, and medical decision making performed by me.
--- NOTE | 2019-05-12 23:36 | History & Physical Report ---
Date of Service May 12, 2019 Assessment & Plan (1) Chest pain: 58-year-old female with a past medical history of unspecified autoimmune neurologic condition with comorbid gastroparesis and neuropathic pain presents with presumed allergic reaction to Macrobid that she took this afternoon. She was experiencing right-sided chest pain and was found to have new T wave inversions in the anterior leads. Patient was admitted for observation of allergic symptoms and chest pain. Chest pain with new T wave inversions in anterior leads Continue to trend troponins, negative x1 Was given aspirin in the ED, continue tomorrow EKG in the morning Besides CAD equivalent mother, no significant cardiovascular risk factors Allergic reaction Given prednisone 60 mg in the ED Benadryl 25 mg as needed every 4 hours Pepcid push x1 given UTI Sulfa allergy, presumed allergy to Macrobid Treat with Augmentin twice daily Neuropathic symptoms Continue amitriptyline DVT prophylaxisSCDs/ambulate CODE STATUSfull Eric.p.o. except for meds and ice chips (2) Allergic reaction: (3) Gastroparesis: (4) Gastroesophageal reflux: History of Present Illness Primary Care Provider: Miguel Coulter MD 58-year-old female with a past medical history of unspecified autoimmune neurologic condition, gastroparesis presents with chest pain, tightness with swallowing and warmth/redness in her hands following administering a new medication. Today she was diagnosed with a UTI and was prescribed Macrobid. She denies any shortness of breath, diarrhea. She states that the symptoms began shortly after 3:30 PM today after she took her first dose. She states that the chest pain was a burning/pressure on her right chest wall. Patient is still having chest pain in the ED, but she states that the intensity is less. Patient denies a past medical history of CAD, diabetes, hypertension, HLD. Patient describes a family history of carotid stenosis in her mother and hypertension in her father. She denies being a smoker. She describes being very active with hiking and biking. She describes a diagnosis of a unspecified autoimmune condition approximately 20 years ago following what appeared to be an episode of meningitis. At that time she was admitted for strokelike symptoms including aphasia. She states that she occasionally has neuropathic symptoms in her extremities. Allergies Allergy/AdvReac Type Severity Reaction Status Date / Time Sulfa (Sulfonamide Allergy Intermediate HIVES Verified 05/12/19 20:10 Antibiotics) Home Medications Home Medications Medication Instructions Recorded Confirmed Type amitriptyline 20 mg PO QPM PRN 05/12/19 05/12/19 History melatonin 10 mg PO HS 05/12/19 05/12/19 History nitrofurantoin 100 mg PO BID 5 Days #10 cap 05/12/19 05/12/19 Rx monohydrate/macrocrystals 100 mg capsule tramadol 50 mg PO TID PRN 05/12/19 05/12/19 History Past Med/Surg History Medical History Acid reflux (Acute) Gastroparesis (Acute) History of hysterectomy (Acute) History of meningitis (Acute) Osteoporosis (Acute) Surgical History History of cholecystectomy (Acute) History of fusion of cervical spine (Acute) History of hip replacement (Acute) Social History Beliefs That Will Affect Care: None Current Living Situation: Spouse Other Information That Helps Us Care for You: No Feels Safe at Home: Yes Safety Concerns: Feels Safe At This Time Smoking Status: Never smoker Hx Substance Use: No Review of Systems Review of Systems: All systems reviewed & are unremarkable except as noted in HPI & below Physical Exam Constitutional: WD/WN, vitals as above Eyes: PERRL, conjunctivae normal, anicteric sclerae ENMT: external ear and nose normal, oropharynx normal Neck: trachea midline, no thyromegaly Respiratory: normal respiratory effort, lungs clear to auscultation Cardiovascular: RRR, no murmur, no edema Gastrointestinal (Abdomen): normal bowel sounds, soft, nontender, no hepatosplenomegaly Musculoskeletal: no cyanosis or clubbing, extremities motor strength 5/5 Skin: no rashes, warm and dry Neurologic: PERRL, EOMI, accommodation nl, no face palsy, no dysarthria Psychiatric: A+Ox3, euthymic affect Results & Data Vital Signs (Past 12 Hours) Vital Signs Temp Pulse Pulse Resp BP BP Pulse Ox 05/12/19 22:00 85 17 158/108 H 97 05/12/19 20:00 71 21 124/87 96 05/12/19 19:30 72 18 126/87 95 05/12/19 19:09 78 21 174/89 H 96 05/12/19 19:00 81 19 95 05/12/19 18:40 87 20 96 05/12/19 18:06 36.9 C 120 H 18 118/67 95 Code Status & VTE Plan VTE Prophylaxis Plan VTE Prophylaxis will be ordered: Yes Supervising Physician Co-Signing Physician Notes Patient seen and examined, chart reviewed, case discussed with Dr. Baires and I agree with his assessment and plan as documented above. Briefly, patient is a 58yo C female presenting with possible allergic reaction and right sided chest discomfort. On exam she is afebrile, HD stable, NAD Skin - intact, no rash HEENT - NC/AT, PERRL, EOMI, MMM, neck supple Heart - +S1/S2, regular, no m/r/g, no chest wall pain Lungs - CTA Abd - +BS, soft, mildly tender in epigastric area Ext - No edema Labs and images reviewed. Troponin x 1 negative. EKG with new TWI present in anterior leads, V1-V3 Assessment/Plan: -Observation with telemetry -Trend cardiac enzymes -Benadryl PRN for possible allergic reaction. Patient with no airway complaints, no stridor/wheeze -Augmentin BID for UTI -Remainder of plan as above PG Care Time/CCT Total # of Minutes Spent Total Time Spent with Patient: Total time spent is greater than 50% in coordination of care (as documented) at patient's floor/unit and/or counseling patient: Resident Activity Tracking Resident Involvement: Resident Care Provided Care Provided: Adult Hospital Medicine
[2019-05-13] MEDS ORDERED: AMITRIPTYLINE HCL 10 MG TAB PO PRN
[2019-05-13] MEDS ORDERED: ACETAMINOPHEN 325 MG TAB PO PRN
[2019-05-13] MEDS ORDERED: FAMOTIDINE 20 MG in SYRINGE 3 ML IV ONE (00:45)
[2019-05-13] MEDS ORDERED: DiphenhydrAMINE HCL 50 MG/ML VIAL IV STA (01:25)
[2019-05-13 04:11] LABS: Hematocrit (blood only) 39.6 % (37-47); Hemoglobin 13.2 g/dL (12.0-16.0); Immature Granulocytes # (auto) 0.01 K/uL (0.00-0.02); Immature Granulocytes % (auto) 0.1 %; Lymphocytes # (auto) 0.63 K/uL (1.2-3.4); Lymphocytes % (auto) 9.4 %; Mean Corpuscular Hemoglobin 31.6 pg (25-34); Mean Corpuscular Hgb Conc 33.3 g/dL (32-36); Mean Corpuscular Volume 94.7 fL (80-100); Mean Platelet Volume 10.4 fL (7.4-10.4); Monocytes # (auto) 0.05 K/uL (0.11-0.59); Monocytes % (auto) 0.7 %; Neutrophils # (auto) 6.03 K/uL (1.4-6.5); Neutrophils % (auto) 89.8 %; Platelet Count 229 K/uL (130-400); RDW Coefficient of Variation 12.3 % (11.5-14.5); RDW Standard Deviation 41.8 fL (36.4-46.3); Red Blood Count 4.18 M/uL (4.2-5.4); White Blood Count 6.72 K/uL (4.8-10.8)
[2019-05-13 04:35] LABS: Blood Urea Nitrogen 13 mg/dl (7-18); Calcium 8.5 mg/dl (8.5-10.1); Carbon Dioxide 26 mmol/L (21-32); Chloride 107 mmol/L (98-107); Creatinine Clr Calc Pharmacy 70.9 ml/min; Est GFR (African American) 90.1; Est GFR (Non-African American) 77.8; Glucose 155 mg/dl (70-99); Potassium 3.8 mmol/L (3.5-5.1); Sodium 139 mmol/L (136-145)
[2019-05-13 04:40] LABS: Troponin I < 0.015 ng/ml (0-0.045)
--- NOTE | 2019-05-13 07:04 | Family Medicine Progress Note ---
Date of Service May 13, 2019 Assessment & Plan (1) Chest pain: 58 y/o F w/ presumed allergic reaction to Macrobid that she took afternoon of 05/12; was experiencing right-sided chest pain and found to have new T wave inversions in the anterior leads. Chest pain with new T wave inversions in anterior leads Continue to trend troponins, negative x1 Continue aspirin EKG: Besides CAD equivalent mother, no significant cardiovascular risk factors Allergic reaction Given prednisone 60 mg in the ED Continue diphenhydramine 25 mg PRN Q4hr Pepcid push x1 given UTI Sulfa allergy, presumed allergy to Macrobid Continue Augmentin BID Neuropathic symptoms Continue home amitriptyline Dietn.p.o. except for meds and ice chips DVT prophylaxisSCDs/ambulate CODE STATUSfull (2) Allergic reaction: (3) Gastroparesis: (4) Gastroesophageal reflux: Physical Exam Eyes: PERRL, conjunctivae normal, anicteric sclerae EOM intact bilaterally ENMT: external ear and nose normal, oropharynx normal Respiratory: normal respiratory effort, lungs clear to auscultation Cardiovascular: RRR, no murmur, no edema Extremities: no calf tenderness and no edema Gastrointestinal (Abdomen): normal bowel sounds, soft, nontender, no hepatosplenomegaly Results & Data Vital Signs (Past 12 Hours) Vital Signs Temp Pulse Pulse Resp BP BP Pulse Ox 05/13/19 04:15 36.5 C 76 16 107/68 95 05/13/19 01:33 83 05/13/19 00:10 36.5 C 81 20 134/84 94 05/12/19 23:59 76 18 143/82 H 94 05/12/19 22:00 85 17 158/108 H 97 05/12/19 20:00 71 21 124/87 96 05/12/19 19:30 72 18 126/87 95 05/12/19 19:09 78 21 174/89 H 96 05/12/19 19:00 81 19 95 Laboratory Results 05/13/19 05/13/19 05/12/19 Range/Units 03:47 03:47 21:30 WBC 6.72 (4.8-10.8) K/uL RBC 4.18 L (4.2-5.4) M/uL Hgb 13.2 (12.0-16.0) g/dL Hct 39.6 (37-47) % MCV 94.7 (80-100) fL MCH 31.6 (25-34) pg MCHC 33.3 (32-36) g/dL RDW Std Deviation 41.8 (36.4-46.3) fL RDW Coeff of Josue 12.3 (11.5-14.5) % Plt Count 229 (130-400) K/uL MPV 10.4 (7.4-10.4) fL Immature Gran % (Auto) 0.1 % Neut % (Auto) 89.8 % Lymph % (Auto) 9.4 % [place] % (Auto) 0.7 % Eos % (Auto) 0.0 % Baso % (Auto) 0.0 % Immature Gran # (Auto) 0.01 (0.00-0.02) K/uL Neut # (Auto) 6.03 (1.4-6.5) K/uL Lymph # (Auto) 0.63 L (1.2-3.4) K/uL [place] # (Auto) 0.05 L (0.11-0.59) K/uL Eos # (Auto) 0.00 (0-0.5) K/uL Baso # (Auto) 0.00 (0-0.2) K/uL POC D-Dimer (0-450) ng/mlFEU Sodium 139 (136-145) mmol/L Potassium 3.8 (3.5-5.1) mmol/L Chloride 107 (98-107) mmol/L Carbon Dioxide 26 (21-32) mmol/L Anion Gap 6.0 (3-11) BUN 13 (7-18) mg/dl Creatinine 0.82 (0.6-1.2) mg/dl Est Cr Clr Drug Dosing 70.9 ml/min Est GFR ( Amer) 90.1 Est GFR (Non-Af Amer) 77.8 BUN/Creatinine Ratio 16.0 (10-20) Glucose 155 H (70-99) mg/dl Calcium 8.5 (8.5-10.1) mg/dl Magnesium 2.0 (1.8-2.4) mg/dl Total Bilirubin (0.2-1) mg/dl AST (15-37) U/L ALT (12-78) U/L Alkaline Phosphatase (45-117) U/L Troponin I < 0.015 < 0.015 (0-0.045) ng/ml Total Protein (6.4-8.2) gm/dl Albumin (3.4-5.0) gm/dl Globulin (2.5-4.0) gm/dl Albumin/Globulin Ratio (0.9-2) Lipase (73-393) U/L 05/12/19 05/12/19 05/12/19 Range/Units 18:54 18:35 18:35 WBC 7.01 (4.8-10.8) K/uL RBC 4.24 (4.2-5.4) M/uL Hgb 13.8 (12.0-16.0) g/dL Hct 40.5 (37-47) % MCV 95.5 (80-100) fL MCH 32.5 (25-34) pg MCHC 34.1 (32-36) g/dL RDW Std Deviation 42.2 (36.4-46.3) fL RDW Coeff of Josue 12.2 (11.5-14.5) % Plt Count 245 (130-400) K/uL MPV 10.6 H (7.4-10.4) fL Immature Gran % (Auto) 0.3 % Neut % (Auto) 65.6 % Lymph % (Auto) 27.7 % [place] % (Auto) 5.1 % Eos % (Auto) 1.0 % Baso % (Auto) 0.3 % Immature Gran # (Auto) 0.02 (0.00-0.02) K/uL Neut # (Auto) 4.60 (1.4-6.5) K/uL Lymph # (Auto) 1.94 (1.2-3.4) K/uL [place] # (Auto) 0.36 (0.11-0.59) K/uL Eos # (Auto) 0.07 (0-0.5) K/uL Baso # (Auto) 0.02 (0-0.2) K/uL POC D-Dimer 213 (0-450) ng/mlFEU Sodium 140 (136-145) mmol/L Potassium 3.5 (3.5-5.1) mmol/L Chloride 105 (98-107) mmol/L Carbon Dioxide 26 (21-32) mmol/L Anion Gap 9.0 (3-11) BUN 12 (7-18) mg/dl Creatinine 1.04 (0.6-1.2) mg/dl Est Cr Clr Drug Dosing 55.9 ml/min Est GFR ( Amer) 67.6 Est GFR (Non-Af Amer) 58.4 BUN/Creatinine Ratio 11.7 (10-20) Glucose 173 H (70-99) mg/dl Calcium 9.0 (8.5-10.1) mg/dl Magnesium (1.8-2.4) mg/dl Total Bilirubin 0.3 (0.2-1) mg/dl AST 27 (15-37) U/L ALT 28 (12-78) U/L Alkaline Phosphatase 74 (45-117) U/L Troponin I < 0.015 (0-0.045) ng/ml Total Protein 7.3 (6.4-8.2) gm/dl Albumin 3.7 (3.4-5.0) gm/dl Globulin 3.6 (2.5-4.0) gm/dl Albumin/Globulin Ratio 1.0 (0.9-2) Lipase 138 (73-393) U/L Medications Administered Current Inpatient Medications Acetaminophen (Tylenol) 650 mg PO Q4H PRN PRN Reason: Pain or Fever Stop: 06/12/19 00:00 Amitriptyline HCl (Elavil) 20 mg PO QPM PRN PRN Reason: Insomnia Stop: 06/12/19 00:00 Amoxicillin/Clavulanate Potassium (Augmentin 875mg) 1 tab PO BIDM [facility] Stop: 05/18/19 07:59 Aspirin (Ecotrin Ectab) 81 mg PO QAM [facility] Stop: 06/12/19 08:59 Diphenhydramine HCl (Benadryl Capsule) 25 mg PO Q4H PRN PRN Reason: Allergic Reaction Stop: 06/12/19 00:00 PG Care Time/CCT Total # of Minutes Spent Total Time Spent with Patient: Total time spent is greater than 50% in coordination of care (as documented) at patient's floor/unit and/or counseling patient: Resident Activity Tracking Resident Involvement: Resident Care Provided Care Provided: Adult Hospital Medicine
[2019-05-13] MEDS ORDERED: PHENAZOPYRIDINE HCL 100 MG TAB PO PRN (07:34)
[2019-05-13] MEDS ORDERED: AMOXICILLIN/CLAVULANATE 875 MG TAB PO SCH (08:00)
[2019-05-13] MEDS ORDERED: ASPIRIN 81 MG ECTAB PO SCH (09:00)
[2019-05-13] MEDS ORDERED: IBUPROFEN 800 MG TAB PO ONE (13:15)
[2019-05-13] MEDS ORDERED: cephALEXin 500 MG CAP PO SCH (13:51)
--- NOTE | 2019-05-13 18:11 | Discharge Summary ---
Date of Service May 13, 2019 Admission HPI Per Admitting Provider 58-year-old female with a past medical history of unspecified autoimmune neurologic condition, gastroparesis presents with chest pain, tightness with swallowing and warmth/redness in her hands following administering a new medication. Today she was diagnosed with a UTI and was prescribed Macrobid. She denies any shortness of breath, diarrhea. She states that the symptoms began shortly after 3:30 PM today after she took her first dose. She states that the chest pain was a burning/pressure on her right chest wall. Patient is still having chest pain in the ED, but she states that the intensity is less. Patient denies a past medical history of CAD, diabetes, hypertension, HLD. Patient describes a family history of carotid stenosis in her mother and hypertension in her father. She denies being a smoker. She describes being very active with hiking and biking. She describes a diagnosis of a unspecified autoimmune condition approximately 20 years ago following what appeared to be an episode of meningitis. At that time she was admitted for strokelike symptoms including aphasia. She states that she occasionally has neuropathic symptoms in her extremities. Admission Exam (Per Admitting) Constitutional WD/WN, vitals as above Eyes PERRL, conjunctivae normal, anicteric sclerae ENMT external ear and nose normal, oropharynx normal Neck trachea midline, no thyromegaly Respiratory normal respiratory effort, lungs clear to auscultation Cardiovascular RRR, no murmur, no edema Gastrointestinal (Abdomen) normal bowel sounds, soft, nontender, no hepatosplenomegaly Musculoskeletal no cyanosis or clubbing, extremities motor strength 5/5 Skin no rashes, warm and dry Neurologic PERRL, EOMI, accommodation nl, no face palsy, no dysarthria Psychiatric A+Ox3, euthymic affect Hospital Course (1) Chest pain: 58 y/o F w/ presumed allergic reaction to Macrobid that she took afternoon of 05/12; was experiencing right-sided chest pain and found to have new T wave inversions in the anterior leads. Chest pain with new T wave inversions in anterior leads Kept on PCU - Troponin negative x3 EKG: demonstrates return to baseline -Echo: with no wall motion abnormality Continue aspirin -will need cardiac stress test for confirmation of no other underlying changes Allergic reaction Given prednisone 60 mg in the ED Continue diphenhydramine 25 mg PRN Q4hr Pepcid push x1 given UTI Sulfa allergy, presumed allergy to Macrobid sent home on keflex Neuropathic symptoms Continue home amitriptyline (2) Allergic reaction: (3) Gastroparesis: (4) Gastroesophageal reflux: Supervising Physician Co-Signing Physician Notes Resident Physician Supervision Note: I independently interviewed and examined the patient and verified the cui history and physical, reviewed labs and image studies, discussed the case with the resident Dr. Weeks and agree with the findings and care plan.
== END 2019-05-13 18:40 | disposition home or self-care (01) ==
LOC: ED 18:03 → 2S 18:03 → SUATTDRO 23:10 → 2S 05-13 00:03

== ENCOUNTER 2022-12-19 15:04 | Observation (INO) ==
[2022-12-19] MEDS ORDERED: MoRPHine SULFATE 4 MG/ML 1 ML CARP\\VIAL IV STA ×2 (15:20→17:36)
[2022-12-19] MEDS ORDERED: ONDANSETRON INJ 2 MG/ML 2 ML VIAL IV STA ×2 (15:20→17:36)
[2022-12-19] MEDS ORDERED: SODIUM CHLORIDE 0.9% 500 ML IV STA (15:20)
--- NOTE | 2022-12-19 15:23 | Emergency Department Note ---
Impression & Plan Abdominal pain Admission ED Provider Note HPI: The patient is a 62-year-old female who presents emergency department with a chief complaint of right-sided abdominal pain. Patient states that she was actually at an outpatient MRI today for some chronic back pain. Patient states that when she was getting her MRI done she developed some nausea, lightheaded sensation, states that she developed some right-sided abdominal pain that is steadily been worsening since. On arrival here to the ED the patient is very nauseous, states she does have acute and relatively severe right-sided abdominal pain. She is with stable blood pressure on arrival 115/70, heart rate within normal limits, patient is saturating well on room air on my initial assessment. She states she has not had any episodes of vomiting as of yet, denies any chest pain or shortness of breath. ROS: - Per HPI *Outpatient medications and allergy history reviewed. *Pertinent external medical records reviewed. PE: General: Alert, mild distress secondary to nausea and abdominal pain HEENT: Normocephalic, trachea midline Eyes: Extraocular eye movement is intact, no scleral erythema Pulmonary: Clear to auscultation bilaterally, no wheezing Cardio: Regular rate and rhythm GI: Abdomen is soft to palpation, there is moderate tenderness to the right side of the abdomen without guarding or rigidity : No suprapubic tenderness MSK: No evidence of trauma or malformation of the extremities, no edema Skin: No evidence of rash Neuro: Alert, no focal deficits Psychiatric: Anxious appearing, cooperative ekg monitor tech: (As interpreted by myself): - An order was placed for continuous cardiac monitoring - Patient was noted to be in sinus rhythm with a rate of 70 EKG: (As interpreted by myself): Rate: 58 Rhythm: Sinus bradycardia Intervals: Within normal limits ST changes: No ST elevation Time: 161 Interventions provided in ED: -IV morphine, IV Zofran, meclizine, IV fluid bolus Differential Diagnosis: Choledocholithiasis, diverticulitis flare, irritable bowel disease, aortic dissection, acute appendicitis, perforated viscus, small bowel obstruction, amongst other potential pathologies. Medical Decision Making: Patient presented to the emergency department with a chief complaint of right- sided abdominal pain and acute onset nausea that she experienced when she was getting an MRI of her spine earlier today at an outpatient center near [place]. Patient states she then drove here to the ED to be assessed. On arrival the patient is very anxious appearing, she complains of nausea and right-sided abdominal pain. Patient later stated she also felt very dizzy. She states she has issues with vestibular dysfunction at baseline. Shortly after the patient arrived IV was established and lab work obtained, patient was given IV morphine and IV Zofran for symptoms. Patient was given IV fluid bolus. CT imaging of the abdomen pelvis was obtained that shows no bowel wall thickening or obstruction, appendix appears normal, no evidence of diverticulitis. There is mention of biliary ductal dilation, possibly secondary to the patient's postcholecystectomy state. Given the location of the patient's pain I did also obtain ultrasound imaging that redemonstrates biliary ductal dilation without any evidence of choledocholithiasis. Lab work does not show any transaminitis, bilirubin is within normal limits, troponin is negative, CBC does not show any leukocytosis, hemoglobin is stable. CMP does show evidence of hypokalemia with potassium of 3.0 which was ordered for IV repletion. On my reassessment patient appears much more comfortable but states she still feels unwell, states nausea is her main symptom but she also continues to feel dizzy. She states that she did have a headache last night but she has not had a headache today. CT imaging of head was therefore ordered given that the patient continued to feel some dizziness, she was also ordered meclizine and IV fluid. CT imaging of the head shows no evidence of any acute intracranial process. EKG obtained shows no evidence of any acute ischemic process. Troponin is negative. Low suspicion for ACS. I discussed admission versus discharge with the patient, at this time patient states she feels "horrible" although she does appear more comfortable than when she came in. She states she has had some abdominal pain chronically but this is worse than usual. Given finding of biliary ductal dilation I think it would be reasonable to bring her and treat her for intractable nausea and obtain an MRCP to make sure she does not have any obstructive pathology. Patient is in agreement to this. [facility] hospitalist service was consulted for admission and patient was placed for admission in stable condition. Disposition discussion held with: Patient Diagnosis: 1. Abdominal pain, acute on chronic, right-sided 2. Nausea, intractable 3. Vertigo, acute 4. Hypokalemia, acute Disposition: Admission Christopher Khan DO Emergency Medicine Past Med/Surg History Medical History Abnormal EKG Acid reflux Adverse drug reaction Chest pain Chronic pain syndrome Gastroparesis Gastroparesis History of meningitis Osteoporosis Postmenopausal atrophic vaginitis Postmenopausal osteoporosis Surgical History History of cholecystectomy History of fusion of cervical spine History of hip replacement History of hysterectomy History of spinal arthrodesis History of tooth extraction Family History Sister Asthma Hypertension Mother Stroke Hypertension Father Stroke Hypertension Osteoarthritis Grandmother (Maternal) Stroke Osteoporosis Brother Osteoarthritis Daughter Allergies Other Dyslipidemia Glaucoma Nephrolithiasis Denies family history of Ovarian cancer Prostate cancer Myocardial infarction Breast cancer Colorectal cancer Social History Smoking Status: Never smoker Second Hand Exposure: No; Do You Dip or Chew Tobacco: No; Hx Alcohol Use: Yes Alcohol type: beer and wine Alcohol Intake Frequency: 2-3 x/Week Hx Substance Use: No Preferred Language: Cymro Communication Ability: Effective Visual Impairment: Limited Hearing Ability: Normal Major Case Detective Required: No Beliefs That Will Affect Care: None marital status: Current Living Situation: Spouse current occupational status: retired How many Children do You have: 2 Feels Safe at Home: Yes Childhood Exposure to Second-Hand Smoke: No caffeine: Yes Dental Care, Regularly: Yes Physical Activity Frequency: Daily Seatbelt Use: always Sunscreen Use: Yes Assistive Devices: None Allergies Allergies Allergy/AdvReac Type Severity Reaction Status Date / Time Sulfa (Sulfonamide Allergy Intermediate HIVES Verified 11/29/22 18:27 Antibiotics) macrobid Allergy Severe hives, Uncoded 11/29/22 18:27 burning in chest Home Meds Home Medications Medication Instructions Recorded Confirmed Saccharomyces boulardii 250 mg 5,000 mmu cells PO DAILY 09/08/22 12/19/22 capsule (Daily Probiotic (S. boulardii)) multivitamin 1 tab PO DAILY 09/08/22 12/19/22 Ca 600 mg-D3 20 mcg-mag oxide 50 1 tab PO DAILY 11/18/22 12/19/22 da-Gn-dnduao-manganese-boron tablet (Calcium 600-D3 Plus (mag-zinc)) omega-3 fatty acids 1,000 mg 1,000 mg PO DAILY 11/29/22 12/19/22 capsule baclofen 10 mg tablet 10 mg PO BID 12/19/22 12/19/22 evolocumab 140 mg/mL subcutaneous 0 mg subcut UD 12/19/22 12/19/22 pen injector (Roberto Carlos Ag) omeprazole 20 mg capsule,delayed 20 mg PO DAILY 12/19/22 12/19/22 release ondansetron 4 mg disintegrating 4 mg PO UD PRN Nausea 12/19/22 12/19/22 tablet Previous Rx's Medication Instructions Recorded ezetimibe 10 mg tablet (Zetia) 10 mg PO DAILY #90 tabs 09/10/22 estradiol 0.01% (0.1 mg/gram) 1 g vaginal .COMPLEX PRN atrophic 10/20/22 vaginal cream vag #42.5 grams zolpidem 5 mg tablet 2.5 mg PO HS PRN insomnia #15 tabs 10/28/22 rosuvastatin 40 mg tablet 40 mg PO DAILY #90 tabs 11/18/22 Results & Data (ED) Vital Signs Vital Signs - 24 hr 12/19/22 15:11 12/19/22 15:27 12/19/22 16:23 Temperature 36.5 C Temperature Source Temporal Artery Scan Pulse Rate 60 49 L Pulse Rate [Apical] 67 Pulse Rhythm Regular Pulse Strength Normal Respiratory Rate 20 18 Respiratory Effort / Characteristics Non-Labored Non-Labored Respiratory Depth Normal Normal Respiratory Pattern Regular Regular Blood Pressure 115/70 Blood Pressure [Left Arm] 132/66 Blood Pressure Mean 85 Blood Pressure Mean [Left Arm] 88 Blood Pressure Position Sitting Pulse Oximetry 99 99 Oxygen Delivery Method Room Air Room Air Sepsis Recent Fever Within 48 Hours No Sepsis New/Unexplained Change in Mental Status No Sepsis Action Taken by Nursing No Action Required 12/19/22 16:23 12/19/22 17:32 12/19/22 19:11 Temperature Temperature Source Pulse Rate Pulse Rate [Apical] 63 65 Pulse Rhythm Pulse Strength Respiratory Rate 18 16 Respiratory Effort / Characteristics Non-Labored Spontaneous Respiratory Depth Normal Respiratory Pattern Regular Blood Pressure Blood Pressure [Left Arm] 133/70 141/74 H Blood Pressure Mean Blood Pressure Mean [Left Arm] 91 96 Blood Pressure Position Pulse Oximetry 99 99 97 Oxygen Delivery Method Room Air Room Air Room Air Sepsis Recent Fever Within 48 Hours Sepsis New/Unexplained Change in Mental Status Sepsis Action Taken by Nursing Laboratory Data 12/19/22 15:35 12/19/22 15:35 Lab Results 12/19/22 12/19/22 12/19/22 Range/Units 15:35 15:35 15:36 WBC 8.37 (4.8-10.8) K/ul RBC 4.04 L (4.20-5.40) M/uL Hgb 12.9 (12.0-16.0) g/dl Hct 37.6 (37.0-47.0) % MCV 93.1 (80.0-100.0) fL MCH 31.9 (25.0-34.0) pg MCHC 34.3 (32.0-36.0) g/dL RDW Std Deviation 40.8 (36.4-46.3) fL RDW Coeff of Josue 11.9 (11.5-14.5) % Plt Count 201 (130-400) K/uL MPV 10.7 (9.4-12.4) fL Immature Gran % (Auto) 0.4 % Neut % (Auto) 74.7 % Lymph % (Auto) 17.6 % Surry % (Auto) 5.9 % Eos % (Auto) 1.3 % Baso % (Auto) 0.1 % Neut # (Auto) 6.26 (1.40-6.50) K/uL Lymph # (Auto) 1.47 (1.2-3.4) K/uL Surry # (Auto) 0.49 (0.11-0.59) K/uL Eos # (Auto) 0.11 (0-0.50) K/uL Baso # (Auto) 0.01 (0-0.2) K/uL Immature Gran # (Auto) 0.03 (0.01-0.20) K/uL Sodium 137 (136-145) mmol/L Potassium 3.0 L (3.5-5.1) mmol/L Chloride 101 (98-107) mmol/L Carbon Dioxide 26 (21-32) mmol/L Anion Gap 10 (3-11) BUN 12 (6-23) mg/dl Creatinine 0.85 (0.6-1.2) mg/dl Est Cr Clr Drug Dosing 65.0 ml/min Est GFR ( Amer) 83.9 ml/min Est GFR (Non-Af Amer) 72.4 ml/min BUN/Creatinine Ratio 14.1 (10-20) Glucose 149 H (70-99(Fasting)) mg/dl Calcium 8.9 (8.6-10.3) mg/dl Total Bilirubin 0.7 (0.2-1.0) mg/dl AST 28 (13-39) U/L ALT 24 (7-52) U/L Alkaline Phosphatase 51 (34-104) U/L Troponin I High Sens 4.4 (0-14) pg/ml Total Protein 6.7 (6.0-8.3) gm/dl Albumin 4.3 (3.4-5.0) gm/dl Globulin 2.4 L (2.5-4.0) gm/dl Albumin/Globulin Ratio 1.8 (0.9-2) Lipase 87 H (11-82) U/L SARS-CoV-2, RNA, NAAT NEGATIVE (NEGATIVE) Administered Medications Potassium Chloride/Sodium Chloride (Normal Saline W/20 Meq Kcl) 20 meq in 1,000 mls @ 150 mls/hr IV .Q6H40M [facility]; Protocol Stop: 01/18/23 17:59 Last Admin: 12/19/22 19:26 Dose: 150 mls/hr Documented By: DEVON Discontinued Medications Sodium Chloride (Nss) 500 mls @ 999 mls/hr IV .Q31M STA Stop: 12/19/22 15:50 Last Infusion: 12/19/22 16:12 Dose: 0 mls/hr Documented By: Admin: 12/19/22 15:41 Dose: 999 mls/hr Documented By: KITTY Ioversol (Optiray 320 100ml) 90 ml IV ONCE ONE Stop: 12/19/22 17:01 Last Admin: 12/19/22 17:00 Dose: 90 ml Documented By: YUMI Meclizine HCl (Meclizine Hcl 25 Mg Tab) 25 mg PO NOW STA Stop: 12/19/22 19:11 Last Admin: 12/19/22 19:26 Dose: 25 mg Documented By: DEVON Morphine Sulfate (Morphine Sulfate 4 Mg/Ml 1 Ml Carp\\Vial) 4 mg IV NOW STA Stop: 12/19/22 15:21 Last Admin: 12/19/22 15:41 Dose: 4 mg Documented By: KITTY Morphine Sulfate (Morphine Sulfate 4 Mg/Ml 1 Ml Carp\\Vial) 4 mg IV NOW STA Stop: 12/19/22 17:37 Last Admin: 12/19/22 17:43 Dose: 4 mg Documented By: ISAIAH Ondansetron HCl (Ondansetron Inj 2 Mg/Ml 2 Ml Vial) 4 mg IV NOW STA Stop: 12/19/22 15:21 Last Admin: 12/19/22 15:39 Dose: 4 mg Documented By: KITTY Ondansetron HCl (Ondansetron Inj 2 Mg/Ml 2 Ml Vial) 4 mg IV NOW STA Stop: 12/19/22 17:37 Last Admin: 12/19/22 17:43 Dose: 4 mg Documented By: ISAIAH Imaging Data Radiologist's Impression: Abdomen/Pelvis CT 12/19/22 15:[address] WITH IV CONTRAST CT DOSE: 266.44 mGy.cm HISTORY: mid to R sided abd pain, acute TECHNIQUE: Multiaxial CT images of the abdomen and pelvis were performed following the use of intravenous contrast. A dose lowering technique was utilized adhering to the principles of ALARA. COMPARISON STUDY: Thoracic spine CT 11/29/2022. FINDINGS: The lung bases are clear. No pneumoperitoneum. No pneumatosis. There is a left total hip arthroplasty. No acute fractures identified. Prior cholecystectomy. Moderate bile duct dilatation with the common bile duct measuring up to 14 mm. No filling defects within the common bile duct. No hepatic masses. The main portal vein is patent. The pancreas, spleen, and adrenal glands are unremarkable. The kidneys enhance normally. No hydronephrosis. No retroperitoneal lymphadenopathy. Mild calcified plaque within the normal caliber abdominal aorta. No pelvic lymphadenopathy or pelvic free fluid. The deep pelvic structures are partially obscured by the left hip prosthesis metallic artifact. However, the bladder appears unremarkable. Prior hysterectomy. Colonic diverticulosis. No evidence for acute diverticulitis. No bowel wall thickening or obstruction. Normal appendix. IMPRESSION: 1. No bowel wall thickening or obstruction. 2. Normal appendix. 3. Colonic diverticulosis. No evidence for acute diverticulitis. 4. No hydronephrosis. 5. Moderate bile duct dilatation. This is nonspecific but could be due to the patient's postcholecystectomy state. Recommend correlate with LFTs to exclude the possibility of an obstructive process. ACT 112: Negative or not required by law. Electronically signed by: Justino Dudley M.D. 12/19/2022 5:31 PM Chest X-Ray 12/19/22 15:21 XR chest 1V not portable HISTORY: Nausea. Vomiting. Generalized abdominal pain. COMPARISON: Chest 11/29/2022. FINDINGS: The lungs are clear. Cardiac silhouette is normal in size. No pleural effusions. No pneumothorax. Cervical spinal fusion hardware is again noted. IMPRESSION: No acute process. ACT 112: Negative or not required by law. Electronically signed by: Justino Dudley M.D. 12/19/2022 3:58 PM Liver Ultrasound 12/19/22 17:44 ABDOMINAL ULTRASOUND, RIGHT UPPER QUADRANT HISTORY: Biliary ductal dilation,right-sided abdominal pain. COMPARISON: Abdomen and pelvis CT 12/19/2022. FINDINGS: Pancreas: The pancreas demonstrates a normal echotexture. Liver: Fall duct dilatation again noted. No hepatic masses. Gallbladder: The gallbladder is surgically absent. CBD: 14 mm. No stones identified within the common bile duct. Right kidney: No hydronephrosis. IMPRESSION: Redemonstration of the moderate bile duct dilatation. No choledocholithiasis. ACT 112: Negative or not required by law. Electronically signed by: Justino Dudley M.D. 12/19/2022 6:[address] 12/19/22 19:[address] DOSE: 614.27 mGy.cm HISTORY: Dizziness. Headache. TECHNIQUE: Multiaxial CT images of the head were performed without the use of intravenous contrast. Automated exposure control was utilized for this study. A dose lowering technique was utilized adhering to the principles of ALARA. Comparison: None. Findings: The paranasal sinuses and mastoid air cells are clear. The calvarium and skull base are intact. The ventricles and sulci are within normal limits. There is no mass, hematoma, midline shift, or acute infarct. Impression: No acute intracranial abnormality. ACT 112: Negative or not required by law. Electronically signed by: Justino Dudley M.D. 12/19/2022 7:30 PM Discharge Plan Visit Data Chief Complaint: Illness Stated Complaint: NAUSEA,PAIN ED Provider: Christopher Khan Discharge Problem: Abdominal pain Forms Stand Alone Forms: [facility] Prescriptions Prescriptions: No Action ezetimibe [Zetia] 10 mg tablet 10 mg PO DAILY Qty: 90 3RF zolpidem 5 mg tablet 2.5 mg PO HS PRN (Reason: insomnia) Qty: 15 1RF Hold Instructions: Home Medication placed on hold at Doctor's office estradiol 0.01 % (0.1 mg/gram) cream 1 g vaginal .COMPLEX PRN (Reason: atrophic vag) Qty: 42.5 0RF Rx Instructions: 1 g vaginal daily for 14 days, then twice weekly as needed; for 14 days PRN; Saccharomyces boulardii [Daily Probiotic (S. boulardii)] 250 mg capsule 5,000 mmu cells PO DAILY multivitamin Tablet 1 tab PO DAILY Ca-D3-mag hp-ivur-xle-tatianna-bor [Calcium 600-D3 Plus (mag-zinc)] 600 mg calcium- 20 mcg-50 mg tablet 1 tab PO DAILY rosuvastatin 40 mg tablet 40 mg PO DAILY Qty: 90 3RF omega-3 fatty acids 1,000 mg Capsule 1,000 mg PO DAILY baclofen 10 mg tablet 10 mg PO BID Repatha SureClick 140 mg/mL pen injector 0 mg SUBCUT UD ondansetron 4 mg tablet,disintegrating 4 mg PO UD PRN (Reason: Nausea) omeprazole 20 mg capsule,delayed release(DR/EC) 20 mg PO DAILY Referrals Referrals: Miguel Coulter MD [Primary Care Provider] - Abdominal pain Qualifiers: Abdominal location: unspecified location Qualified Code(s): R10.9 - Unspecified abdominal pain
[2022-12-19 15:54] LABS: Basophils # (auto) 0.01 K/uL (0-0.2); Basophils % (auto) 0.1 %; Eosinophils # (auto) 0.11 K/uL (0-0.50); Eosinophils % (auto) 1.3 %; Hematocrit (blood only) 37.6 % (37.0-47.0); Hemoglobin 12.9 g/dl (12.0-16.0); Immature Granulocytes # (auto) 0.03 K/uL (0.01-0.20); Immature Granulocytes % (auto) 0.4 %; Lymphocytes # (auto) 1.47 K/uL (1.2-3.4); Lymphocytes % (auto) 17.6 %; Mean Corpuscular Hemoglobin 31.9 pg (25.0-34.0); Mean Corpuscular Hgb Conc 34.3 g/dL (32.0-36.0); Mean Corpuscular Volume 93.1 fL (80.0-100.0); Mean Platelet Volume 10.7 fL (9.4-12.4); Monocytes # (auto) 0.49 K/uL (0.11-0.59); Monocytes % (auto) 5.9 %; Neutrophils # (auto) 6.26 K/uL (1.40-6.50); Neutrophils % (auto) 74.7 %; Platelet Count 201 K/uL (130-400); RDW Coefficient of Variation 11.9 % (11.5-14.5); RDW Standard Deviation 40.8 fL (36.4-46.3); Red Blood Count 4.04 M/uL (4.20-5.40); White Blood Count 8.37 K/ul (4.8-10.8)
--- NOTE | 2022-12-19 16:00 | XRay Report ---
XR chest 1V not portable HISTORY: Nausea. Vomiting. Generalized abdominal pain. COMPARISON: Chest 11/29/2022. FINDINGS: The lungs are clear. Cardiac silhouette is normal in size. No pleural effusions. No pneumot horax. Cervical spinal fusion hardware is again noted. IMPRESSION: No acute process. ACT 112: Negative or not required by law. Electronically signed by: Justino Dudley M.D. 12/19/2022 3:58 PM
[2022-12-19 16:07] LABS: Albumin Globulin Ratio 1.8 (0.9-2); Albumin Level 4.3 gm/dl (3.4-5.0); BUN Creatinine Ratio 14.1 (10-20); Bilirubin,Total 0.7 mg/dl (0.2-1.0); Calcium 8.9 mg/dl (8.6-10.3); Est GFR (African American) 83.9 ml/min; Est GFR (Non-African American) 72.4 ml/min; Globulin 2.4 gm/dl (2.5-4.0); Total Protein 6.7 gm/dl (6.0-8.3)
[2022-12-19 16:13] LABS: Troponin I High Sensitivity 4.4 pg/ml (0-14)
[2022-12-19] MEDS ORDERED: OPTIRAY 320 100ml IV ONE (17:00)
--- NOTE | 2022-12-19 17:33 | CT Scan Report ---
ABDOMEN AND PELVIS CT WITH IV CONTRAST CT DOSE: 266.44 mGy.cm HISTORY: mid to R sided abd pain, acute TECHNIQUE: Multiaxial CT images of the abdomen and pelvis were performed following the use of intrave nous contrast. A dose lowering technique was utilized adhering to the principles of ALARA. COMPARISON STUDY: Thoracic spine CT 11/29/2022. FINDINGS: The lung bases are clear. No pneumoperitoneum. No pneumatosis. There is a left total hip ar throplasty. No acute fractures identified. Prior cholecystectomy. Moderate bile duct dilatation with the common bile duct measuring up to 14 mm. No filling defects within the common bile duct. No hepati c masses. The main portal vein is patent. The pancreas, spleen, and adrenal glands are unremarkable. The kidneys enhance normally. No hydronephrosis. No retroperitoneal lymphadenopathy. Mild calcified p laque within the normal caliber abdominal aorta. No pelvic lymphadenopathy or pelvic free fluid. The deep pelvic structures are partially obscured by the left hip prosthesis metallic artifact. However, the bladder appears unremarkable. Prior hysterectomy. Colonic diverticulosis. No evidence for acute d iverticulitis. No bowel wall thickening or obstruction. Normal appendix. IMPRESSION: 1. No bowel wall thickening or obstruction. 2. Normal appendix. 3. Colonic diverticulosis. No evidence for acute diverticulitis. 4. No hydronephrosis. 5. Moderate bile duct dilatation. This is nonspecific but could be due to the patient's postcholecyst ectomy state. Recommend correlate with LFTs to exclude the possibility of an obstructive process. ACT 112: Negative or not required by law. Electronically signed by: Justino Dudley M.D. 12/19/2022 5:31 PM
[2022-12-19] MEDS ORDERED: NSS + 20MEQ KCL 20 MEQ/1,000 ML BAG IV SCH (18:00)
--- NOTE | 2022-12-19 18:54 | Ultrasound Report ---
ABDOMINAL ULTRASOUND, RIGHT UPPER QUADRANT HISTORY: Biliary ductal dilation,right-sided abdominal pain. COMPARISON: Abdomen and pelvis CT 12/19/2022. FINDINGS: Pancreas: The pancreas demonstrates a normal echotexture. Liver: Fall duct dilatation again noted. No hepatic masses. Gallbladder: The gallbladder is surgically absent. CBD: 14 mm. No stones identified within the common bile duct. Right kidney: No hydronephrosis. IMPRESSION: Redemonstration of the moderate bile duct dilatation. No choledocholithiasis. ACT 112: Negative or not required by law. Electronically signed by: Justino Dudley M.D. 12/19/2022 6:52 PM
[2022-12-19] MEDS ORDERED: MECLIZINE HCL 25 MG TAB PO STA (19:10)
--- NOTE | 2022-12-19 19:31 | CT Scan Report ---
HEAD CT NONCONTRAST CT DOSE: 614.27 mGy.cm HISTORY: Dizziness. Headache. TECHNIQUE: Multiaxial CT images of the head were performed without the use of intravenous contrast. A utomated exposure control was utilized for this study. A dose lowering technique was utilized adheri ng to the principles of ALARA. Comparison: None. Findings: The paranasal sinuses and mastoid air cells are clear. The calvarium and skull base are int act. The ventricles and sulci are within normal limits. There is no mass, hematoma, midline shift, or acute infarct. Impression: No acute intracranial abnormality. ACT 112: Negative or not required by law. Electronically signed by: Justino Dudley M.D. 12/19/2022 7:30 PM
[2022-12-19] MEDS ORDERED: PANTOprazole 40 MG in SYRINGE 0 ML IV STA (21:06)
[2022-12-19] MEDS ORDERED: METOCLOPRAMIDE HCL INJ 5 MG/ML 2 ML VIAL IV PRN (21:26)
--- NOTE | 2022-12-19 21:35 | History & Physical Report ---
Date of Service December 19, 2022 Assessment & Plan (1) Abdominal pain: Plan: 62yo female presenting with ongoing nausea, epigastric abdominal pain. CT of the abdomen with moderate bile duct dilation. Normal LFTs. No leukocytosis. Mildly elevated lipase of 87 -Observation to medical with telemetry -Zofran PRN -Reglan PRN -Protonix 40mg IV daily -Check MRCP given dilation of bile ducts, persistent nausea, abdominal pain (2) Hyperlipidemia: Plan: Patient on Zetia and Rosuvastatin as well as Repatha injections for elevated lipoprotein a -Hold oral agents for now -Resume when patient is tolerating PA (3) Gastroparesis: Plan: Reglan PRN F/E/N - LR at 100mL/hr x 2 liters, K and PO4 repletion - repeat labs in AM, NPO for now - advance as tolerated Ppx - SCds Code - Full per discussion with patient Dispo - Observation to medical with telemetry History of Present Illness Chief Complaint: nausea, back pain Primary Care Provider: Miguel Coulter MD Keya Junior is a 62yo female with history fo GERD, Gastroparesis presenting with severe nausea and abdominal pain. Patient has been participating in PT for a small supraspinatus tendon tear in her RIGHT shoulder since October. She reports progressively worsening back pain ongoing since starting PT. Patient was seen in the ER on 11/29/22 with complaint of right upper back pain with radiation through the entire back from mid thoracic to upper lumbar. Also with a burning pain radiating into her right trapezius and right shoulder and into her right anterior chest wall. She had a normal CXR and CT of the thoracic spine which revealed no acute bony abnormalities but 3 pulmonary nodules (recommend followup imaging in 3-4 months). Patient was treated with Toradol 10mg IV, Solumedrol 60mg IV, Morphine 4mg IV and Oxycodone. Pain likely secondary to musculoskeletal origin - patient was prescribed Prednisone 50mg x 5 days and discharged home. Patient had severe back pain last night around 21:00 - also with nausea and dizziness. She placed ice on her back with some relief. She went to [place] this afternoon to have an MRI performed. She reports after her MRI she had severe onset of nausea, dizziness and feeling that she was going to pass out. She reports severe, persistent nausea as well as epigastric abdominal pain. Otherwise, she denies fever, chills, chest pain, cough, SOB. Denies vomiting, diarrhea or constipation. Denies reflux symptoms. She does have some early satiety. No additional complaints at this time ER Course: Zofran 4m IV NSS x 500mL Morphine Allergies Allergy/AdvReac Type Severity Reaction Status Date / Time nitrofurantoin Allergy Severe hives, Verified 12/19/22 21:42 [From Macrobid] burning in chest Sulfa (Sulfonamide Allergy Intermediate HIVES Verified 11/29/22 18:27 Antibiotics) Home Medications Medication Instructions Recorded Confirmed Type Saccharomyces boulardii 250 mg 5,000 mmu cells PO DAILY 09/08/22 12/19/22 History capsule (Daily Probiotic (S. boulardii)) multivitamin 1 tab PO DAILY 09/08/22 12/19/22 History ezetimibe 10 mg tablet (Zetia) 10 mg PO DAILY #90 tabs 09/10/22 12/19/22 Rx estradiol 0.01% (0.1 mg/gram) 1 g vaginal .COMPLEX PRN atrophic 10/20/22 12/19/22 Rx vaginal cream vag #42.5 grams zolpidem 5 mg tablet 2.5 mg PO HS PRN insomnia #15 tabs 10/28/22 12/19/22 Rx Ca 600 mg-D3 20 mcg-mag oxide 50 1 tab PO DAILY 11/18/22 12/19/22 History rz-Di-fktlly-manganese-boron tablet (Calcium 600-D3 Plus (mag-zinc)) rosuvastatin 40 mg tablet 40 mg PO DAILY #90 tabs 11/18/22 12/19/22 Rx omega-3 fatty acids 1,000 mg 1,000 mg PO DAILY 11/29/22 12/19/22 History capsule baclofen 10 mg tablet 10 mg PO BID 12/19/22 12/19/22 History evolocumab 140 mg/mL subcutaneous 0 mg subcut UD 12/19/22 12/19/22 History pen injector (Roberto Carlos Ag) omeprazole 20 mg capsule,delayed 20 mg PO DAILY 12/19/22 12/19/22 History release ondansetron 4 mg disintegrating 4 mg PO UD PRN Nausea 12/19/22 12/19/22 History tablet Past Med/Surg History Medical History (Updated 12/20/22 @ 01:08 by Edna Wing DO) Abnormal EKG Acid reflux Adverse drug reaction Chest pain Chronic pain syndrome Gastroparesis Gastroparesis History of meningitis Osteoporosis Postmenopausal atrophic vaginitis Postmenopausal osteoporosis Surgical History History of cholecystectomy History of fusion of cervical spine History of hip replacement History of hysterectomy History of spinal arthrodesis History of tooth extraction Family History Sister Asthma Hypertension Mother Stroke Hypertension Father Stroke Hypertension Osteoarthritis Grandmother (Maternal) Stroke Osteoporosis Brother Osteoarthritis Daughter Allergies Other Dyslipidemia Glaucoma Nephrolithiasis Denies family history of Ovarian cancer Prostate cancer Myocardial infarction Breast cancer Colorectal cancer Social History Smoking Status: Never smoker Second Hand Exposure: No; Do You Dip or Chew Tobacco: No; Hx Alcohol Use: Yes Alcohol type: beer and wine Alcohol Intake Frequency: 2-3 x/Week Hx Substance Use: No Preferred Language: Fijian Communication Ability: Effective Visual Impairment: Limited Hearing Ability: Normal Operational Communication Chief Required: No Beliefs That Will Affect Care: None marital status: Current Living Situation: Spouse current occupational status: retired How many Children do You have: 2 Other Information That Helps Us Care for You: No Feels Safe at Home: Yes Safety Concerns: Feels Safe At This Time Childhood Exposure to Second-Hand Smoke: No caffeine: Yes Dental Care, Regularly: Yes Physical Activity Frequency: Daily Seatbelt Use: always Sunscreen Use: Yes Assistive Devices: Glasses Review of Systems Review of Systems: All systems reviewed & are unremarkable except as noted in HPI & below Physical Exam Physical Exam: General: patient resting comfortably, NAD, non-toxic in appearance, AA&O x 4 Skin: warm, dry, intact, no rashes or lesions HEENT: NC/AT, PERRL, EOMI, anicteric sclera, conjunctiva without injection, external ear normal to inspection and nontender, nares patent, moist mucus membranes, dentition intact, no oropharyngeal lesions, neck supple, trachea midline, no LAD, no thyromegaly, no JVD Heart: +S1/S2, regular, no m/r/g Lungs: equal air entry bilaterally, no rales/rhonchi/wheezes Abd: +BS, soft, ND, epigastric tenderness, no masses/organomegaly/ascites Ext: warm, 2+ pulses in UE/LE bilaterally, no clubbing/cyanosis or edema Neuro: nonfocal, patient AA&O x 4, speech intact, no facial droop, moving all extremities on command with equal strength 5/5 Results & Data Results & Data Vital Signs (Past 12 Hours) Vital Signs Temp Pulse Pulse Resp BP BP Pulse Ox 12/19/22 21:04 68 18 146/67 H 98 12/19/22 19:29 70 12/19/22 19:11 65 16 141/74 H 97 12/19/22 17:32 63 18 133/70 99 12/19/22 16:23 99 12/19/22 16:23 67 18 132/66 99 12/19/22 15:27 49 L 12/19/22 15:11 36.5 C 60 20 115/70 99 O2 Del Method 12/19/22 21:04 Room Air 12/19/22 19:29 12/19/22 19:11 Room Air 12/19/22 17:32 Room Air 12/19/22 16:23 Room Air 12/19/22 16:23 Room Air 12/19/22 15:27 12/19/22 15:11 Room Air Laboratory Results Laboratory Results WBC 8.37 K/ul (4.8-10.8) 12/19/22 15:35 RBC 4.04 M/uL (4.20-5.40) L 12/19/22 15:35 Hgb 12.9 g/dl (12.0-16.0) 12/19/22 15:35 Hct 37.6 % (37.0-47.0) 12/19/22 15:35 MCV 93.1 fL (80.0-100.0) 12/19/22 15:35 MCH 31.9 pg (25.0-34.0) 12/19/22 15:35 MCHC 34.3 g/dL (32.0-36.0) 12/19/22 15:35 RDW Std Deviation 40.8 fL (36.4-46.3) 12/19/22 15:35 RDW Coeff of Josue 11.9 % (11.5-14.5) 12/19/22 15:35 Plt Count 201 K/uL (130-400) 12/19/22 15:35 MPV 10.7 fL (9.4-12.4) 12/19/22 15:35 Immature Gran % (Auto) 0.4 % 12/19/22 15:35 Neut % (Auto) 74.7 % 12/19/22 15:35 Lymph % (Auto) 17.6 % 12/19/22 15:35 Beadle % (Auto) 5.9 % 12/19/22 15:35 Eos % (Auto) 1.3 % 12/19/22 15:35 Baso % (Auto) 0.1 % 12/19/22 15:35 Neut # (Auto) 6.26 K/uL (1.40-6.50) 12/19/22 15:35 Lymph # (Auto) 1.47 K/uL (1.2-3.4) 12/19/22 15:35 Beadle # (Auto) 0.49 K/uL (0.11-0.59) 12/19/22 15:35 Eos # (Auto) 0.11 K/uL (0-0.50) 12/19/22 15:35 Baso # (Auto) 0.01 K/uL (0-0.2) 12/19/22 15:35 Immature Gran # (Auto) 0.03 K/uL (0.01-0.20) 12/19/22 15:35 Sodium 137 mmol/L (136-145) 12/19/22 15:35 Potassium 3.0 mmol/L (3.5-5.1) L 12/19/22 15:35 Chloride 101 mmol/L (98-107) 12/19/22 15:35 Carbon Dioxide 26 mmol/L (21-32) 12/19/22 15:35 Anion Gap 10 (3-11) 12/19/22 15:35 BUN 12 mg/dl (6-23) 12/19/22 15:35 Creatinine 0.85 mg/dl (0.6-1.2) 12/19/22 15:35 Est Cr Clr Drug Dosing 65.0 ml/min 12/19/22 15:35 Est GFR ( Amer) 83.9 ml/min 12/19/22 15:35 Est GFR (Non-Af Amer) 72.4 ml/min 12/19/22 15:35 BUN/Creatinine Ratio 14.1 (10-20) 12/19/22 15:35 Glucose 149 mg/dl (70-99(Fasting)) H 12/19/22 15:35 Calcium 8.9 mg/dl (8.6-10.3) 12/19/22 15:35 Phosphorus 1.3 mg/dl (2.5-4.9) L* 12/19/22 15:35 Magnesium 2.0 mg/dl (1.7-2.4) 12/19/22 15:35 Total Bilirubin 0.7 mg/dl (0.2-1.0) 12/19/22 15:35 AST 28 U/L (13-39) 12/19/22 15:35 ALT 24 U/L (7-52) 12/19/22 15:35 Alkaline Phosphatase 51 U/L (34-104) 12/19/22 15:35 Troponin I High Sens 4.4 pg/ml (0-14) 12/19/22 15:35 Total Protein 6.7 gm/dl (6.0-8.3) 12/19/22 15:35 Albumin 4.3 gm/dl (3.4-5.0) 12/19/22 15:35 Globulin 2.4 gm/dl (2.5-4.0) L 12/19/22 15:35 Albumin/Globulin Ratio 1.8 (0.9-2) 12/19/22 15:35 Lipase 87 U/L (11-82) H 12/19/22 15:35 SARS-CoV-2, RNA, NAAT NEGATIVE (NEGATIVE) 12/19/22 15:36 Impressions Abdomen/Pelvis CT 12/19/22 15:[address] WITH IV CONTRAST CT DOSE: 266.44 mGy.cm HISTORY: mid to R sided abd pain, acute TECHNIQUE: Multiaxial CT images of the abdomen and pelvis were performed following the use of intravenous contrast. A dose lowering technique was utilized adhering to the principles of ALARA. COMPARISON STUDY: Thoracic spine CT 11/29/2022. FINDINGS: The lung bases are clear. No pneumoperitoneum. No pneumatosis. There is a left total hip arthroplasty. No acute fractures identified. Prior cholecystectomy. Moderate bile duct dilatation with the common bile duct measuring up to 14 mm. No filling defects within the common bile duct. No hepatic masses. The main portal vein is patent. The pancreas, spleen, and adrenal glands are unremarkable. The kidneys enhance normally. No hydronephrosis. No retroperitoneal lymphadenopathy. Mild calcified plaque within the normal caliber abdominal aorta. No pelvic lymphadenopathy or pelvic free fluid. The deep pelvic structures are partially obscured by the left hip prosthesis metallic artifact. However, the bladder appears unremarkable. Prior hysterectomy. Colonic diverticulosis. No evidence for acute diverticulitis. No bowel wall thickening or obstruction. Normal appendix. IMPRESSION: 1. No bowel wall thickening or obstruction. 2. Normal appendix. 3. Colonic diverticulosis. No evidence for acute diverticulitis. 4. No hydronephrosis. 5. Moderate bile duct dilatation. This is nonspecific but could be due to the patient's postcholecystectomy state. Recommend correlate with LFTs to exclude the possibility of an obstructive process. ACT 112: Negative or not required by law. Electronically signed by: Justino Dudley M.D. 12/19/2022 5:31 PM Chest X-Ray 12/19/22 15:21 XR chest 1V not portable HISTORY: Nausea. Vomiting. Generalized abdominal pain. COMPARISON: Chest 11/29/2022. FINDINGS: The lungs are clear. Cardiac silhouette is normal in size. No pleural effusions. No pneumothorax. Cervical spinal fusion hardware is again noted. IMPRESSION: No acute process. ACT 112: Negative or not required by law. Electronically signed by: Justino Dudley M.D. 12/19/2022 3:58 PM Liver Ultrasound 12/19/22 17:44 ABDOMINAL ULTRASOUND, RIGHT UPPER QUADRANT HISTORY: Biliary ductal dilation,right-sided abdominal pain. COMPARISON: Abdomen and pelvis CT 12/19/2022. FINDINGS: Pancreas: The pancreas demonstrates a normal echotexture. Liver: Fall duct dilatation again noted. No hepatic masses. Gallbladder: The gallbladder is surgically absent. CBD: 14 mm. No stones identified within the common bile duct. Right kidney: No hydronephrosis. IMPRESSION: Redemonstration of the moderate bile duct dilatation. No choledocholithiasis. ACT 112: Negative or not required by law. Electronically signed by: Justino Dudley M.D. 12/19/2022 6:[address] 12/19/22 19:[address] DOSE: 614.27 mGy.cm HISTORY: Dizziness. Headache. TECHNIQUE: Multiaxial CT images of the head were performed without the use of intravenous contrast. Automated exposure control was utilized for this study. A dose lowering technique was utilized adhering to the principles of ALARA. Comparison: None. Findings: The paranasal sinuses and mastoid air cells are clear. The calvarium and skull base are intact. The ventricles and sulci are within normal limits. There is no mass, hematoma, midline shift, or acute infarct. Impression: No acute intracranial abnormality. ACT 112: Negative or not required by law. Electronically signed by: Justino Dudley M.D. 12/19/2022 7:30 PM Code Status & VTE Plan VTE Prophylaxis Plan VTE Prophylaxis will be ordered: Yes PG Care Time/CCT Total # of Minutes Spent Total Time Spent with Patient: Total time spent is greater than 50% in coordination of care (as documented) at patient's floor/unit and/or counseling patient: Coding Level of Care Code 79090 INT INP/OBS CARE 2/55MIN Diagnoses Abdominal pain R10.9 Abdominal location: unspecified location Hyperlipidemia E78.5 Gastroparesis K31.84 (1) Abdominal pain Abdominal location: unspecified location Qualified Code(s): R10.9 - Unspecified abdominal pain
[2022-12-19] MEDS ORDERED: POTASSIUM CHLORIDE CRTAB 20 MEQ TABCR PO SCH (22:30)
[2022-12-19] MEDS ORDERED: ZOLPIDEM TARTRATE 5 MG TAB PO PRN (23:03)
[2022-12-19] MEDS ORDERED: ACETAMINOPHEN 325 MG TAB PO PRN (23:03)
[2022-12-19] MEDS ORDERED: DOCUSATE SODIUM 100 MG CAP PO PRN (23:03)
[2022-12-19] MEDS: LACTATED RINGER'S 1,000 ML IV SCH (23:26)
[2022-12-19] MEDS ORDERED: POTASSIUM CHLORIDE / WTR 10 MEQ/100 ML PLCT IV SCH (23:45)
[2022-12-20 00:14] LABS: Phosphorus 1.3 mg/dl (2.5-4.9)
[2022-12-20] MEDS ORDERED: POTASSIUM PHOS 3 MMOL/1 ML INFUSION IV STA (00:17)
[2022-12-20] MEDS ORDERED: POTASSIUM PHOSPHATE 15 MMOL in SODIUM CHLORIDE 0.9% 250 ML IV ONE (00:45)
[2022-12-20 02:00] LABS: Appearance Urine Clear (Clear); Bilirubin Urine Negative (Negative); Blood Urine Negative (Negative); Color Urine Yellow; Glucose Urine UA Negative (Negative); Ketones Urine 2+ (Negative); Leukocyte Esterase Urine Negative (Negative); Nitrite Urine Negative (Negative); Protein Urine Negative (Negative); Specific Gravity Urine 1.011 (1.000-1.030); Urobilinogen Urine Negative (Negative); pH Urine 6.5 (4.5-7.5)
[2022-12-20 06:16] LABS: Basophils # (auto) 0.01 K/uL (0-0.2); Basophils % (auto) 0.2 %; Hematocrit (blood only) 35.8 % (37.0-47.0); Immature Granulocytes # (auto) 0.01 K/uL (0.01-0.20); Immature Granulocytes % (auto) 0.2 %; Lymphocytes # (auto) 1.35 K/uL (1.2-3.4); Lymphocytes % (auto) 26.2 %; Mean Corpuscular Hemoglobin 31.7 pg (25.0-34.0); Mean Corpuscular Hgb Conc 33.5 g/dL (32.0-36.0); Mean Corpuscular Volume 94.7 fL (80.0-100.0); Mean Platelet Volume 10.4 fL (9.4-12.4); Monocytes # (auto) 0.39 K/uL (0.11-0.59); Monocytes % (auto) 7.6 %; Neutrophils # (auto) 3.39 K/uL (1.40-6.50); Neutrophils % (auto) 65.8 %; Platelet Count 189 K/uL (130-400); RDW Coefficient of Variation 12.1 % (11.5-14.5); RDW Standard Deviation 42.5 fL (36.4-46.3); Red Blood Count 3.78 M/uL (4.20-5.40); White Blood Count 5.15 K/ul (4.8-10.8)
[2022-12-20 06:49] LABS: Albumin Globulin Ratio 1.6 (0.9-2); Albumin Level 3.6 gm/dl (3.4-5.0); BUN Creatinine Ratio 10.6 (10-20); Bilirubin,Total 0.4 mg/dl (0.2-1.0); Calcium 7.7 mg/dl (8.6-10.3); Creatinine Clr Calc Pharmacy 83.7 ml/min; Est GFR (African American) 108.2 ml/min; Est GFR (Non-African American) 93.4 ml/min; Globulin 2.3 gm/dl (2.5-4.0); Magnesium 1.9 mg/dl (1.7-2.4); Total Protein 5.9 gm/dl (6.0-8.3)
[2022-12-20] MEDS ORDERED: LIDOCAINE 5% 1 PATCH TD SCH (09:00)
[2022-12-20] MEDS ORDERED: BACLOFEN 10 MG TAB PO SCH (09:00)
[2022-12-20] MEDS: LACTATED RINGER'S 1,000 ML IV SCH (09:24)
--- NOTE | 2022-12-20 10:27 | Electrocardiogram Report ---
Test Reason : Blood Pressure : / mmHG Vent. Rate : 058 BPM Atrial Rate : 058 BPM P-R Int : 146 ms QRS Dur : 078 ms QT Int : 466 ms P-R-T Axes : 073 073 063 degrees QTc Int : 457 ms Sinus bradycardia Otherwise normal ECG When compared with ECG of 29-NOV-2022 17:23, No significant change was found Confirmed by Ravindra Balbuena ([id number]) on 12/20/2022 10:27:23 AM Referred By: REFERRED SELF Confirmed By:Ravindra Balbuena
--- NOTE | 2022-12-20 10:59 | Hospitalist Progress Note ---
Date of Service December 20, 2022 Assessment & Plan (1) Abdominal pain: Plan: Now resolved. MRCP is pending. If unremarkable, will allow her to have a regular diet and if she tolerates that well she will go home later today. She was instructed to take liquid antacids as needed for any recurrent abdominal pain and see how she responds to this intervention. She takes omeprazole once daily at home already. CT of the abdomen with moderate bile duct dilation, no other significant findings. She is status postcholecystectomy in the past. Normal LFTs. No leukocytosis. (2) Hyperlipidemia: Plan: Patient on Zetia and Rosuvastatin as well as Repatha injections. Medications held on admission. Will be restarted at discharge (3) Gastroparesis: Plan: Reglan PRN Plan Home later today, December 20, if MRCP is negative and she tolerates a regular diet Admission and Anticipated Discharge Date Admission Date: December 19, 2022 Subjective Alert and oriented. She states her nausea has completely resolved. MR states CP scan is pending. If negative, will allow a regular diet and if she tolerates this well she will go home later today, December 20. She received parenteral phosphorus replacement. Review of Systems Review of Systems: Constitutional-no fever or chills ENT-no blurred vision, no double vision, no epistaxis, no sore throat Respiratory-no cough, no wheezing, no shortness of breath Cardiac-no palpitations, no chest pain, no syncope GI-no nausea, vomiting, diarrhea, melena, hematochezia. Epigastric discomfort has resolved -no urinary retention, no urinary incontinence, no dysuria, no hematuria Musculoskeletal-no joint pain, no muscle tenderness Skin-no bruising, no rashes, no pruritus Neuro-no isolated weakness, no paresthesia, no weakness Psych-no depression, no anxiety Physical Exam Physical Exam: General-alert and oriented x3, no fevers, no chills HEENT-head atraumatic and normocephalic, pupils equal and reactive to light, extraocular muscles intact Neck-no lymphadenopathy or thyromegaly, trachea midline Chest-clear to auscultation percussion. No rales wheezing or rhonchi Cardiac-regular rate and rhythm, normal S1 and S2 Abdomen-normal bowel sounds, nontender, no hepatosplenomegaly Extremities-no cyanosis, clubbing, or edema Neuro-cranial nerves II through XII intact, motor and sensory function within normal limits, strength symmetrical , no focal deficits Psych-normal affect, normal mood Results & Data Results & Data Vital Signs (Past 12 Hours) Vital Signs Temp Pulse Pulse Resp BP Pulse Ox O2 Del Method 12/20/22 07:35 36.7 C 59 L 18 111/66 100 Room Air 12/20/22 03:34 36.5 C 75 16 129/72 98 Room Air 12/19/22 23:03 Room Air 12/19/22 23:03 36 C L 70 18 138/76 98 Room Air Laboratory Results 12/20/22 05:52 12/20/22 05:52 PG Care Time/CCT Total # of Minutes Spent Total Time Spent with Patient: Total time spent is greater than 50% in coordination of care (as documented) at patient's floor/unit and/or counseling patient: Coding Level of Care Code 42212 SUB INP/OBS CARE 3/50MIN Diagnoses Abdominal pain R10.9 Abdominal location: unspecified location Hyperlipidemia E78.5 Gastroparesis K31.84 (1) Abdominal pain Abdominal location: unspecified location Qualified Code(s): R10.9 - Unspecified abdominal pain
[2022-12-20] MEDS ORDERED: PANTOprazole 40 MG in SYRINGE 0 ML IV SCH (11:00)
--- NOTE | 2022-12-20 12:43 | Magnetic Resonance Report ---
MRCP CLINICAL HISTORY: Dilated bile ducts, persistent nausea/ TECHNIQUE: Utilizing a 1.5 Zahraa magnet and dedicated coil, multiplanar, multiecho [facility] er abdomen was performed utilizing heavily T2 weighted pulsing sequences without IV contrast. COMPARISON STUDY: CT of the abdomen and pelvis and right upper quadrant ultrasound December 19, 2022. FINDINGS: There is moderate dilatation of the common bile duct, measuring 1.2 cm. No common bile duct calculi are identified. There is no pancreatic ductal dilatation. No hepatic lesions are identified on this unenhanced exam. Spleen, adrenal glands, kidneys and pancreas are unremarkable. Is no peripan creatic fluid. There is no abdominal lymphadenopathy. Caliber of visualized small and large bowel are normal. IMPRESSION: Moderate dilatation of the common bile duct, likely due to previous cholecystectomy. No common bile duct calculi. ACT 112: Negative or not required by law. Electronically signed by: Josias Bolivar M.D. 12/20/2022 12:41 PM
--- NOTE | 2022-12-20 12:57 | Discharge Summary ---
Date of Service December 20, 2022 Principal Diagnosis Nausea, epigastric pain Discharge Exam General-alert and oriented x3, no fevers, no chills HEENT-head atraumatic and normocephalic, pupils equal and reactive to light, extraocular muscles intact Neck-no lymphadenopathy or thyromegaly, trachea midline Chest-clear to auscultation percussion. No rales wheezing or rhonchi Cardiac-regular rate and rhythm, normal S1 and S2 Abdomen-normal bowel sounds, nontender, no hepatosplenomegaly Extremities-no cyanosis, clubbing, or edema Neuro-cranial nerves II through XII intact, motor and sensory function within normal limits, strength symmetrical , no focal deficits Psych-normal affect, normal mood Discharge Data Allergies Allergy/AdvReac Type Severity Reaction Status Date / Time nitrofurantoin Allergy Severe hives, Verified 12/19/22 21:42 [From Macrobid] burning in chest Sulfa (Sulfonamide Allergy Intermediate HIVES Verified 11/29/22 18:27 Antibiotics) Consultations 12/19/22 19:32 ED Decision to Admit Stat Ordered Studies 12/19/22 15:20 CT abd pelvis IV con only Stat 12/19/22 17:44 US liver Stat 12/19/22 19:09 CT head/brain wo con Stat 12/20/22 01:09 MR MRCP Routine Hospital Course (1) Abdominal pain: Resolved. MRCP negative for any acute findings. Common bile duct is dilated probably from previous cholecystectomy. No choledocholithiasis identified. She will be given a meal and then discharged if she tolerates the meal without incident (2) Hyperlipidemia: Stable on current medication (3) Gastroparesis: Stable on current medication Plan Home later today, 12/20, if she tolerates oral intake Total Time Total Time Spent Total Time Spent (In Minutes): 40 minutes Discharge Plan Discharge Items Patient Disposition: Home - Self-Care Reason For Visit: ABD PAIN Discharge Diagnosis: Epigastric pain Activity: Resume your previous activity Non-emergency contact: Primary Care Provider Call non-emergency contact if: you have any medication questions and your symptoms worsen Follow-up/Referrals: Miguel Coulter MD [Primary Care Provider] - 12/29/22 3:45 pm Diet: Regular and Heart Healthy Addtl Attending Provider Instructions: Take liquid antacid for recurrent epigastric pain and see how you respond. Let your PCP know the results Pending Studies at Discharge: No Stand-Alone Forms: My [facility], Smoking Cessation Medications and DC Order Prescriptions: Continued ezetimibe [Zetia] 10 mg tablet 10 mg PO DAILY Qty: 90 3RF zolpidem 5 mg tablet 2.5 mg PO HS PRN (Reason: insomnia) Qty: 15 1RF Hold Instructions: Home Medication placed on hold at Doctor's office estradiol 0.01 % (0.1 mg/gram) cream 1 g vaginal .COMPLEX PRN (Reason: atrophic vag) Qty: 42.5 0RF Rx Instructions: 1 g vaginal daily for 14 days, then twice weekly as needed; for 14 days PRN; Saccharomyces boulardii [Daily Probiotic (S. boulardii)] 250 mg capsule 5,000 mmu cells PO DAILY multivitamin Tablet 1 tab PO DAILY Ca-D3-mag dn-zchc-xni-tatianna-bor [Calcium 600-D3 Plus (mag-zinc)] 600 mg calcium- 20 mcg-50 mg tablet 1 tab PO DAILY rosuvastatin 40 mg tablet 40 mg PO DAILY Qty: 90 3RF omega-3 fatty acids 1,000 mg Capsule 1,000 mg PO DAILY baclofen 10 mg tablet 10 mg PO BID Repatha SureClick 140 mg/mL pen injector 0 mg SUBCUT UD ondansetron 4 mg tablet,disintegrating 4 mg PO UD PRN (Reason: Nausea) omeprazole 20 mg capsule,delayed release(DR/EC) 20 mg PO DAILY Discharge Orders: Discharge Order (Routine); Ordered 12/20/22 Ordered By: Justo Jordan Admission Data Admit Date/Time: 12/19/22 20:29 Attending Provider: Justo Jordan Admit Provider: Edna Wing Primary Care Provider: Miguel Coulter Other Providers: Edna Wing Coding Level of Care Code 37395 INP/OBS DISCH >30 MIN Diagnoses Abdominal pain R10.9 Abdominal location: unspecified location Hyperlipidemia E78.5 Gastroparesis K31.84
== END 2022-12-20 14:11 | disposition home or self-care (01) ==
LOC: 2N 15:04 → ED 15:04 → SUATTDRO 20:29 → 2N 21:58